=== PATIENT | female | born 1995 | race Caucasian/White ===

== ENCOUNTER → 2018-08-05 12:47 | Outpatient (CLI) | payer BC, SELFPAY ==
[2018-08-05 13:04] LABS: Adenovirus F 40/41, stool Not Detected (NotDetected); Astrovirus Not Detected (NotDetected); Campylobacter Not Detected (NotDetected); Clostridium Difficile A/B, PCR Not Detected (NotDetected); Cryptosporidium Not Detected (NotDetected); Cyclospora Cayetanesis Not Detected (NotDetected); Entamoeba histolytica Not Detected (NotDetected); Enteroaggregative E coli Not Detected (NotDetected); Enteropathogenic E coli Not Detected (NotDetected); Enterotoxigenic E coli Not Detected (NotDetected); Giardia lamblia Not Detected (NotDetected); Norovirus Not Detected (NotDetected); Plesimonas Shigalloides, PCR Not Detected (NotDetected); Rotavirus A Not Detected (NotDetected); Salmonella, PCR Not Detected (NotDetected); Sapovirus Not Detected (NotDetected); Shiga-like toxin E coli Not Detected (NotDetected); Shigella Enterovasive E coli Not Detected (NotDetected); Vibrio Cholerae Not Detected (NotDetected); Vibrio, PCR Not Detected (NotDetected); Yersinia Entercolitica, PCR Not Detected (NotDetected)
[2018-08-05 16:25] LABS: C-Reactive Protein < 0.2 mg/L (0.0-0.9)
[2018-08-07 20:14] LABS: Tissue Transglutaminase IgA Ab <2 U/mL (0-3); Tissue Transglutaminase IgG Ab <2 U/mL (0-5)
[2018-08-10 14:48] LABS: Calprotectin, Fecal <16 ug/g (0-120)
== END ==
PROVIDERS: Visit Provider Emergency Medicine
DX: R19.7 Diarrhea, unspecified (principal)
CPT/HCPCS: 36415; 83516; 83993; 86140; 87205; 87507

== ENCOUNTER → 2018-09-25 14:49 | Outpatient (POV) | payer BC, SELFPAY | PROVIDERS: Visit Provider Nurse Practitioner Acute Care | DX: Z00.00 Encounter for general adult medical examination without abnormal findings (principal) ==

== ENCOUNTER → 2019-06-18 14:27 | Outpatient (CLI) | payer BC, SELFPAY ==
[2019-06-18 18:46] LABS: HCG,Quantitative 0 mIU/mL
== END ==
PROVIDERS: Visit Provider Nurse Practitioner Obstetrics & Gynecology
DX: Z34.90 Encounter for supervision of normal pregnancy, unspecified, unspecified trimester (principal); N92.6 Irregular menstruation, unspecified
CPT/HCPCS: 36415; 84702

== ENCOUNTER → 2019-06-21 14:15 | Outpatient (CLI) | payer BC, SELFPAY ==
--- NOTE | 2019-06-21 14:20 | US_ITS ---
PROCEDURE: US TRANSVAGINAL CLINICAL INDICATION: PELVIC PAIN, OVARIAN CYST Pelvic pain, left lower quadrant pain COMPARISON: No exams were available for comparison FINDINGS: UTERUS: The uterus is 8 x 4 x 5 cm with a combined endometrial thickness of 2 mm. No uterine mass evident. Left ovary is 3.3 x 2.2 cm and contains a few small follicles The right ovary is 3.7 x 2.5 cm with multiple small follicles. At least 8 follicles are seen in 1 image on both ovaries.. The total volume of the right ovary is 10.5 mL the total volume of the left ovary is 10.5 mL. Bilateral ovarian blood flow is present. No cul-de-sac fluid apparent IMPRESSION: Polycystic appearance of the ovaries otherwise negative pelvic ultrasound Dictated by: Jason Carpio MD 06/21/2019 16:52 Electronically signed by Jason Carpio MD in [place] 06/21/2019 16:52
== END ==
PROVIDERS: PCP Family Medicine; Visit Provider Physician Assistant
DX: R10.2 Pelvic and perineal pain (principal); N83.202 Unspecified ovarian cyst, left side
CPT/HCPCS: 76830

== ENCOUNTER 2019-11-25 04:49 | Emergency (ER) | payer BC, SELFPAY ==
[2019-11-25 05:04] VITALS: BP 130/96; PULSE 112; RESP 24; TEMP 36.6; O2SAT 98
--- NOTE | 2019-11-25 05:10 | XR_ITS ---
PROCEDURE: XR SHOULDER LT MIN 2V Patient Age:23Y CLINICAL INDICATION: pain Shoulder pain started while playing video games. No significant trauma COMPARISON: No exams were available for comparison FINDINGS: Left shoulder is intact with no fracture or dislocation. The humeral head and neck satisfactory. Glenohumeral joint intact and satisfactory. AC joint unremarkable. Scapula upper left ribs and left lung apex unremarkable IMPRESSION: Negative left shoulder. No fracture nor dislocation Dictated by: Frank Carrillo MD 11/25/2019 13:16 Electronically signed by Frank Carrillo MD in [place] 11/25/2019 13:16
--- NOTE | 2019-11-25 05:17 | PC.NURSE ---
Ice placed to left shoulder
[2019-11-25 05:21] LABS: Urine Pregnancy, HCG Qual. Negative (Negative)
--- NOTE | 2019-11-25 05:41 | HMH.EDUPEXT ---
ED Disposition Clinical Impression: Shoulder pain, left Qualifiers: Chronicity: acute Qualified Code(s): M25.512 - Pain in left shoulder Acute serous otitis media Qualifiers: Laterality: left Recurrence: not specified as recurrent Qualified Code(s): H65.02 - Acute serous otitis media, left ear Disposition: Home, Self-Care Condition on Discharge: Good Instructions: DI for Shoulder Pain Additional Instructions: use meds and call pcp for follow up Prescriptions: predniSONE [Prednisone 20mg Tab] 20 mg PO BID #10 tab Prescription Printed Referrals: Albin Puckett MD [Primary Care Provider] - - Critical Care Critical Care Time: No Attestation: On 11/25/19, the high probability of a clinically significant, sudden or life threatening deterioration of the following system(s) required my full and direct attention, intervention and personal management. The time I documented below is in addition to time spent performing reported procedures but includes the following listed in this critical care notation. Medical Decision Making - Medical Records Medical records reviewed: Yes: I reviewed the patient's medical records. - Jovanny Inquiry Pt receiving controlled substance: No Vital Signs: 11/25/19 05:04 Temperature 97.8 F Temperature Source Oral Pulse Rate [Right] 112 H Respiratory Rate 24 Blood Pressure [Right Arm] 130/96 H Blood Pressure Mean [Right Arm] 107 Blood Pressure Source [Right Arm] Automatic Cuff Blood Pressure Position [Right Arm] Sitting 02 Sat by Pulse Oximetry 98 Oxygen Delivery Method Room Air - Lab Data Lab results reviewed: Yes: I reviewed the patient's lab results. Lab Results 11/25/19 05:05: Urine HCG, Qual Negative Orders (Tests/Meds): ED MEDICATIONS Discontinued Medications Generic Name Dose Route Start Last Admin Trade Name Freq PRN Reason Stop Dose Admin Ketorolac Tromethamine 60 mg 11/25/19 05:11 11/25/19 05:27 Toradol 60mg/2ml Vial IM 11/25/19 05:12 60 mg ONCE ONE Administration ORDERS Category Date Time Status XR shoulder LT min 2V Stat Exams 11/25/19 05:10 Taken - Radiology Data #1 Image(s): Shoulder Image Reviewed: Yes I reviewed the patient's radiology image Preliminary Findings: No Fracture Seen Upper Extremity HPI - General Chief Complaint: Extremity Injury, Upper Stated Complaint: Earache, Pain in lft shoulder and down back Time Seen by Provider: 11/25/19 05:25 Mode of Arrival: Ambulatory Source of Information: Patient, Medical Record Limitations: No Limitations Description of Symptoms (Recalled from ER Triage Doc. by RN): Pt c/o left shoulder pain started about 30 minutes ago, denies injury - History of Present Illness HPI narrative: atraumatic pain to lt shoulder area with no rash - some lt ear pain but no cough or fever and no sob or abd pain MD complaint: injury to: shoulder Onset (ago): hour(s) Other Extremity Injury: Left: shoulder Place: home Severity: moderate Associated symptoms: denies other symptoms - Related Data Home Medications Medication Instructions Recorded Confirmed Buspirone HCl [Buspar 10mg 10 mg PO BID 02/14/19 11/25/19 tablet] Levonorgestrel/Ethin.estradiol 1 tab PO DAILY 11/25/19 11/25/19 [Orsythia-28 Tablet] Previous Rx's Medication Instructions Recorded Dicyclomine HCl [Bentyl 10mg 10 mg PO QID PRN #20 cap 02/15/19 capsule] predniSONE [Prednisone 20mg 20 mg PO BID #10 tab 11/25/19 Tab] Allergies Allergy/AdvReac Type Severity Reaction Status Date / Time cinnamon [CINNAMON] Allergy Unknown Verified 06/26/19 15:28 [facility] History - Hepatitis A Screen Drug use history?: No High risk sexual behaviors?: No History of sexually transmitted infection?: No Currently employed?: No Childcare worker?: No Do you have indoor plumbing?: Yes Do you have electricity?: Yes Attestation statement:: This patient has been screened for Hepatit
[2019-11-25 06:02] VITALS: BP 136/88; PULSE 116; RESP 18; TEMP 36.6; O2SAT 97
== END 2019-11-25 06:03 | disposition home or self-care (01) ==
PROVIDERS: Emergency Provider Emergency Medicine; PCP Family Medicine
DX: M25.512 Pain in left shoulder (principal); H65.02 Acute serous otitis media, left ear; K21.9 Gastro-esophageal reflux disease without esophagitis
CPT/HCPCS: 73030; 81025; 96372; 99282

== ENCOUNTER 2019-11-26 13:42 | Observation (INO) | payer BC, SELFPAY ==
[2019-11-26] VITALS (8 sets, daily range): BP systolic 103–126; BP diastolic 56–76; PULSE 75–106; RESP 15–22; TEMP 36.7–36.8; O2SAT 95–100; BMI 30.2
--- NOTE | 2019-11-26 11:52 | CT_ITS ---
PROCEDURE: CT ANGIO CHEST CLINCIAL INDICATION: CHEST PAIN ON BREATHING,LT SIDED CHEST PAIN COMPARISON: No exams were available for comparison TECHNIQUE: IV Contrast: 70ML OPTIRAY 350 Axial images obtained with sagittal and coronal reformats. All CT scans at the facility use one or more dose reduction, viz: automated exposure control, ma/kV adjustment per patient size (including targeted exams where dose is matched to indication, i.e. head), or iterative reconstruction technique. FINDINGS: HEART AND MEDIASTINAL STRUCTURES: Filling defects are present within the descending branch of the pulmonary artery on both sides extending into the segmental branches on both sides. This is somewhat more extensive on the right. This is consistent with bilateral acute pulmonary emboli. The main pulmonary artery and the right and left main pulmonary arteries do not appear involved. There is normal heart size. There is some mild bowing of the interventricular septum posteriorly which could be seen with mild RV strain. LUNGS AND PLEURAL SPACES: There is consolidation in the left lower lobe posteriorly with trace left-sided effusion. BONY STRUCTURES: No acute bony abnormalities apparent. UPPER ABDOMEN: Unremarkable. ADDITIONAL FINDINGS: No other significant abnormalities. IMPRESSION: 1. Acute bilateral pulmonary emboli involving the lower lobes with suggestion of some mild right ventricular strain 2. Consolidation in the left lung base posteriorly suggesting pneumonia versus atelectasis or infarct with trace left-sided effusion. 3. Dr. Conrad's office was called with the report 11/26/2019 at 12:50 p.m.. The report was given to Kayy Dictated by: Jason Carpio MD 11/26/2019 12:54 Electronically signed by Jason Carpio MD in [place] 11/26/2019 12:54
--- NOTE | 2019-11-26 14:01 | HMH.HP ---
*Admission Date: 11/26/19 <Inge Ching 11/26/19 14:28> *Chief complaint: left shoulder pain <Inge Ching 11/26/19 14:28> *History of present illness: Kimberly is a 23-year-old female with a history of irritable bowel syndrome who presented to [facility] for ongoing left shoulder pain. She was seen in the emergency room 2 days ago for the same. She received ketorolac 60 mg IM. X-ray of the shoulder was negative. She also had a left earache and was started on prednisone for effusion. The pain did not improve. The pain went from her shoulder down to the left chest/rib cage and she began to have discomfort on inspiration. With evaluation in the office patient had a temperature of 97.8, blood pressure 128/74, and heart rate was 70. She also had a chest CTA which indicated acute bilateral pulmonary emboli involving the lower lobes with suggestion of some mild right ventricular strain; consolidation in the left lung base posteriorly suggesting pneumonia versus atelectasis or infarct with trace left-sided effusion. She was thus admitted for anticoagulation and pain control. She will also be treated for otitis externa of bilateral ears. To note patient has recently restarted oral control pills 3 months ago for irregular menses and polycystic ovaries. <Inge Ching 11/26/19 14:28> [facility] History Medical History: Reports:: Gastroesophageal Reflux Disease(GERD) Denies:: Cancer, Diabetes Mellitus Type 1, Diabetes Mellitus Type 2, Internal Pacemaker, Lung Disease, MRSA, Seizures <Inge Ching 11/26/19 14:28> *Have you ever received a pneumonia vaccine?: No <Inge Ching 11/26/19 14:28> *Have you received a flu vaccine this season?: No <Inge Ching 11/26/19 14:28> Comment:: Irritable bowel syndrome <Inge Ching 11/26/19 14:28> Other Surgeries: Yes: No Previous Surgery. No: Pacemaker <Inge Ching 11/26/19 14:28> Amputation: No <Inge Ching 11/26/19 14:28> Fractures: No <Inge Ching 11/26/19 14:28> - *Social History Smoking Status: Never smoker <HumzaInge 11/26/19 14:28> Alcohol Intake: current <ChingInge 11/26/19 14:28> Alcohol Intake Frequency:: a few times a month <ChingInge - 11/26/19 14:28> *Occupational Status:: employed <ChingInge Kam 11/26/19 14:28> Housing: house <ChingInge 11/26/19 14:28> Household Members: spouse, children <ChingInge 11/26/19 14:28> *Travel in the last 8 weeks: None <ChingInge 11/26/19 14:28> Family Hx:: Cancer, Coronary Artery Disease, Stroke <Ching,Inge 11/26/19 14:28> 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 history: Polycystic Ovary Syndrome <ChingInge 11/26/19 14:28> : 1 <HumzaInge 11/26/19 14:28> Para: 1 <ChingInge 11/26/19 14:28> A: 0 <ChingInge 11/26/19 14:28> Comment: Restarted oral control pills about 3 months ago <HumzaInge 11/26/19 14:28> Review of Systems - Constitutional Denies chills, Denies fever(s) <HumzaInge 11/26/19 14:28> - Eyes Denies change in vision <Inge Ching 11/26/19 14:28> - ENT Reports ear pain (Left ear), Denies dizziness, Denies nosebleed, Denies post nasal drip, Denies sore throat <Inge Ching 11/26/19 14:28> - *Cardiovascular Reports chest pain, Reports fast heart rate, Denies shortness of breath, Denies irregular heart rhythm, Denies foot swelling <Inge Ching 11/26/19 14:28> - *Respiratory Denies chest congestion, Denies cough, Denies shortness of breath, Denies excessive phlegm production, Denies pain with cough <Inge Ching 11/26/19 14:28> Comments: Pain on deep inspiration <Inge Ching 11/26/19 14:28> - *Gastrointestinal Denies abdominal pain, Denies heartburn, Denies vomiting blood, Denies loose stools, Denies nausea, Denies vomiting <Inge Ching 11/26/19 14:28> - *Genitourinary Denies difficulty urinating <Inge Ching 11/26/19 14:28> - *Musculoskeletal Denies abnormal walking, Denies joint
--- NOTE | 2019-11-26 14:03 | HMH.PHAINT ---
MEDICATION RECONCILIATION COMPLETE. OBTAINED MEDICATION LIST FROM MD AND CROSS REFERENCED WITH FILL HISTORY.
[2019-11-26 14:59] LABS: Basophils % 0.3 % (0.1-2.0); Eosinophils # 0.1 K/mm3 (0.0-0.4); Eosinophils % 1.5 % (0.1-12.0); Hematocrit 40.5 % (37.0-47.0); Hemoglobin 13.7 g/dL (12.2-16.2); Lymphocytes # 2.3 K/mm3 (0.7-4.5); Lymphocytes % 25.2 % (10-50); Mean Corpuscular HGB Conc 33.7 g/dL (31.8-35.4); Mean Corpuscular Hemoglobin 31.2 pg (27.0-31.2); Mean Corpuscular Volume 92.6 fl (81-99); Mean Platelet Volume 7.9 fl (7.4-10.4); Monocytes # 0.6 K/mm3 (0.1-1.0); Monocytes % 6.4 % (1.7-9.3); Neutrophils # 6.2 K/mm3 (1.8-7.8); Neutrophils % 66.5 % (37.0-80.0); Platelet Count 252 K/mm3 (142-424); Red Blood Count 4.38 M/mm3 (4.20-5.40); White Blood Count 9.3 K/mm3 (4.8-10.8)
[2019-11-26 15:03] LABS: Chloride 104 mmol/L (98-107); Potassium 3.6 mmoL/L (3.5-5.1); Sodium 136 mmol/L (136-145)
[2019-11-26 15:06] LABS: Alanine Aminotransferase 49 U/L (12-78); Albumin Level 4.1 g/dl (3.5-5.0); Albumin/Globulin Ratio 1.3 (1.1-1.8); Alkaline Phosphatase 54 U/L (38-126); Anion Gap 13.6 mEq/L (5-15); Aspartate Amino Transferase 35 U/L (14-36); Bilirubin,Total 0.4 mg/dl (0.2-1.3); Blood Urea Nitrogen 7 mg/dl (7-17); Calcium 8.8 mg/dl (8.4-10.2); Carbon Dioxide 22 mmol/L (22.0-30.0); Creatinine Clearance Estimated 155 mL/min (50-200); Estimated Glomerular Filt Rate 102 ml/min (>60); GFR (African American) 123 ML/MIN (>60); Globulin 3.1 g/dL (1.3-3.2); Glucose 92 mg/dl (74-100); Total Protein,Serum 7.2 g/dl (6.3-8.2)
[2019-11-26 15:21] LABS: INR 0.94 (0.9-1.1); Prothrombin Time 9.8 seconds (9.4-11.8)
--- NOTE | 2019-11-26 18:12 | PC.NURSE ---
DR. GAVIRIA AT BEDSIDE FOR ROUNDS. NO NEW ORDERS AT THIS TIME.
[2019-11-27] VITALS: BP 109/58; PULSE 89; PULSE 90; O2SAT 98
--- NOTE | 2019-11-27 00:36 | PC.NURSE ---
She is resting in bed. Received PRN pain medication for pain in her left ribs. She reports that it is hard to take a deep breath. She continues with lovenox injections. Urine is yellow, clear. Continues on RA. VSS.
[2019-11-27 02:00] VITALS: BP 107/64; PULSE 76; O2SAT 98
[2019-11-27 04:00] VITALS: BP 116/58; PULSE 80; PULSE 86; O2SAT 99
[2019-11-27 06:00] VITALS: BP 107/62; PULSE 88; O2SAT 98
--- NOTE | 2019-11-27 07:30 | HMH.PHAVTE ---
[facility] Pharmacy VTE Monitoring - Patient Demographics Admission date: 11/26/19 Report Date: 11/27/19 Time: 07:30 Allergies/Adverse Reactions: Patient Allergies cinnamon [CINNAMON] Allergy (Unknown, Verified 06/26/19 15:28) Height: 1.63 m Weight: 79.917 kg Patient Problems: Current Active Problems Pulmonary embolism, bilateral (Acute) Otitis externa (Acute) Shoulder pain, acute (Acute) - VTE Risk Labs: VTE Related Lab Results Hgb 13.7 g/dL (12.2-16.2) 11/26/19 14:35 Hct 40.5 % (37.0-47.0) 11/26/19 14:35 Plt Count 252 K/mm3 (142-424) 11/26/19 14:35 PT 9.8 seconds (9.4-11.8) 11/26/19 14:35 INR 0.94 (0.9-1.1) 11/26/19 14:35 BUN 7 mg/dl (7-17) 11/26/19 14:35 Creatinine 0.70 mg/dl (0.52-1.04) 11/26/19 14:35 Estimated Creat Clear 155 mL/min (50-200) 11/26/19 14:35 Was VTE Risk Assessment Performed: Yes VTE Score: 1 VTE Risk Level: Very Low Risk - Prophylaxis VTE Prophylaxis Ordered?: Yes Types of VTE Prophylaxis: TEDS Knee High, Pharmacological Location of Applied Device: Bilateral Lower Extremeties Pharmacologic Type: Enoxaparin - VTE Diagnosis Confirmed Treatment or plan recommended: Continue Current Treatment
[2019-11-27 08:00] VITALS: BP 116/71; PULSE 88; RESP 18; TEMP 36.8; O2SAT 97
--- NOTE | 2019-11-27 08:11 | HMH.ACPN2 ---
<Inge Ching - Last Filed: 11/27/19 08:11> Internal Medicine - PN: Subj *Date: 11/27/19 *Time: 08:11 Interval history: Patient states she is better this morning. She continues to have the left pleuritic type pain and is short of breath with activity. O2 sats have been good. Pain medicine does help. She denies any nausea or vomiting. She has been able to eat without difficulty. Bowels have not moved. She is voiding QS. She has been up to the bathroom several times. She does experience some dizziness. Exam Vital signs and Labs for Last 24 Hours: Temp Pulse Resp BP Pulse Ox 98.2 F 88 15 107/62 L 98 11/26/19 19:44 11/27/19 06:00 11/26/19 19:44 11/27/19 06:00 11/27/19 06:00 Laboratory Results - last 24 hr 11/26/19 14:35: WBC 9.3, RBC 4.38, Hgb 13.7, Hct 40.5, MCV 92.6, MCH 31.2, MCHC 33.7, RDW 12.0, Plt Count 252, MPV 7.9, Neut % (Auto) 66.5, Lymph % (Auto) 25.2, [place] % (Auto) 6.4, Eos % (Auto) 1.5, Baso % (Auto) 0.3, Neut # (Auto) 6.2, Lymph # (Auto) 2.3, [place] # (Auto) 0.6, Eos # (Auto) 0.1, Baso # (Auto) 0.0 11/26/19 14:35: PT 9.8, INR 0.94 11/26/19 14:35: Sodium 136, Potassium 3.6, Chloride 104, Carbon Dioxide 22, Anion Gap 13.6, BUN 7, Creatinine 0.70, Estimated Creat Clear 155, Estimated GFR 102, Est GFR ( Amer) 123, Glucose 92, Calcium 8.8, Total Bilirubin 0.4, AST 35, ALT 49, Alkaline Phosphatase 54, Total Protein 7.2, Albumin 4.1, Globulin 3.1, Albumin/Globulin Ratio 1.3 I & O for Last 24 hours: Intake & Output 11/24/19 11/25/19 11/26/19 11/27/19 11:59 11:59 11:59 11:59 Intake Total 1089 / 1089 Output Total 300 / 300 Balance 789 / 789 Weight 176 lb 3 oz - Constitutional no acute distress Comments: Appears more comfortable this a.m. - *Routine Respiratory Exam Present: CTA bilaterally (Anteriorly and posteriorly) - *Routine Cardiovascular Exam Present: RRR - *Routine Abdominal Exam Present: soft, normoactive bowel sounds. Absent: tenderness - *Routine Extremities Exam Absent: edema, calf tenderness, palpable cord Comments: Small knot on anterior left lower extremity. Tender to palpation. No leg edema. No calf tenderness or knots otherwise; no cords. - *Routine Neurological Exam Present: alert, oriented X3 Assessment and Plan (1) Pulmonary embolism, bilateral Current visit: Yes Status: Acute Category: Medical Code(s): I26.99 - Other pulmonary embolism without acute cor pulmonale (2) Shoulder pain, acute Current visit: Yes Status: Acute Category: Medical Code(s): M25.519 - Pain in unspecified shoulder (3) Otitis externa Current visit: Yes Status: Acute Category: Medical Code(s): H60.90 - Unspecified otitis externa, unspecified ear <Isaias Conrad - Last Filed: 11/27/19 08:47> Internal Medicine - PN: Subj *Date: 11/27/19 *Time: 08:45 Exam Vital signs and Labs for Last 24 Hours: Temp Pulse Resp BP Pulse Ox 98.2 F 88 15 107/62 L 98 11/27/19 08:00 11/27/19 06:00 11/26/19 19:44 11/27/19 06:00 11/27/19 06:00 Laboratory Results - last 24 hr 11/26/19 14:35: WBC 9.3, RBC 4.38, Hgb 13.7, Hct 40.5, MCV 92.6, MCH 31.2, MCHC 33.7, RDW 12.0, Plt Count 252, MPV 7.9, Neut % (Auto) 66.5, Lymph % (Auto) 25.2, [place] % (Auto) 6.4, Eos % (Auto) 1.5, Baso % (Auto) 0.3, Neut # (Auto) 6.2, Lymph # (Auto) 2.3, [place] # (Auto) 0.6, Eos # (Auto) 0.1, Baso # (Auto) 0.0 11/26/19 14:35: PT 9.8, INR 0.94 11/26/19 14:35: Sodium 136, Potassium 3.6, Chloride 104, Carbon Dioxide 22, Anion Gap 13.6, BUN 7, Creatinine 0.70, Estimated Creat Clear 155, Estimated GFR 102, Est GFR ( Amer) 123, Glucose 92, Calcium 8.8, Total Bilirubin 0.4, AST 35, ALT 49, Alkaline Phosphatase 54, Total Protein 7.2, Albumin 4.1, Globulin 3.1, Albumin/Globulin Ratio 1.3 I & O for Last 24 hours: Intake & Output 11/24/19 11/25/19 11/26/19 11/27/19 23:59 23:59 23:59 23:59 Intake Total 360 / 370 729 / 729 Output Total 300 / 300 [place]
--- NOTE | 2019-11-27 09:47 | HMH.PHAINT ---
DISCHARGE COUNSELING COMPLETE. SPOKE WITH PATIENT ABOUT STOPPING CONTROL, ADDITION OF SHORT-COURSE NORCO, AND XARELTO. DISCUSSED SIGNS AND SYMPTOMS OF BLEEDING, WHAT TO DO IF BLEEDING/HEAD BUMP OCCURS. PATIENT ENDORSED NO QUESTIONS AT THIS TIME.
--- NOTE | 2019-11-27 16:47 | HMH.DCSUM ---
General - General Admission date:: 11/26/19 Discharge date: 11/27/19 HPI HPI: Kimberly is a 23-year-old female with a history of irritable bowel syndrome who presented to [facility] for ongoing left shoulder pain. She was seen in the emergency room 2 days ago for the same. She received ketorolac 60 mg IM. X-ray of the shoulder was negative. She also had a left earache and was started on prednisone for effusion. The pain did not improve. The pain went from her shoulder down to the left chest/rib cage and she began to have discomfort on inspiration. With evaluation in the office patient had a temperature of 97.8, blood pressure 128/74, and heart rate was 70. She also had a chest CTA which indicated acute bilateral pulmonary emboli involving the lower lobes with suggestion of some mild right ventricular strain; consolidation in the left lung base posteriorly suggesting pneumonia versus atelectasis or infarct with trace left-sided effusion. She was thus admitted for anticoagulation and pain control. She was also be treated for otitis externa of bilateral ears. To note patient recently had restarted oral control pills about 3 months ago for irregular menses and polycystic ovaries. Hospital Course Hospital Course: Patient was admitted to acute care for anticoagulation and pain control. She received maintenance IV fluids. She did require [place] for ongoing left lower chest pain. She received Lovenox injections every 12 hours and on day of discharge was started on Xarelto. CBC was normal. Blood chemistries were normal as well as liver function studies. Antithrombin III, factor V, factor V Leiden mutation,Anticardiolio Ab,IgA/G/M, protein C and protein S were ordered and pending at time of discharge. On 11/27/2019 patient was feeling better. She continued to have the left lower chest pain which improved with pain medicine. She was wanting to go home. Vital signs were stable and O2 sats were good on room air. Patient was discharged to home in stable and satisfactory condition. She was to follow-up with Dr. Conrad in 1 week. She was to start on Xarelto. 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 She will be off of work for 2 weeks. Objective Vital signs: Temp Pulse Resp BP Pulse Ox 98.2 F 88 18 116/71 97 11/27/19 08:00 11/27/19 08:00 11/27/19 08:00 11/27/19 08:00 11/27/19 08:00 Narrative: Exam Vital signs and Labs for Last 24 Hours: Temp Pulse Resp BP Pulse Ox 98.2 F 88 15 107/62 L 98 11/26/19 19:44 11/27/19 06:00 11/26/19 19:44 11/27/19 06:00 11/27/19 06:00 Laboratory Results - last 24 hr 11/26/19 14:35: WBC 9.3, RBC 4.38, Hgb 13.7, Hct 40.5, MCV 92.6, MCH 31.2, MCHC 33.7, RDW 12.0, Plt Count 252, MPV 7.9, Neut % (Auto) 66.5, Lymph % (Auto) 25.2, [place] % (Auto) 6.4, Eos % (Auto) 1.5, Baso % (Auto) 0.3, Neut # (Auto) 6.2, Lymph # (Auto) 2.3, [place] # (Auto) 0.6, Eos # (Auto) 0.1, Baso # (Auto) 0.0 11/26/19 14:35: PT 9.8, INR 0.94 11/26/19 14:35: Sodium 136, Potassium 3.6, Chloride 104, Carbon Dioxide 22, Anion Gap 13.6, BUN 7, Creatinine 0.70, Estimated Creat Clear 155, Estimated GFR 102, Est GFR ( Amer) 123, Glucose 92, Calcium 8.8, Total Bilirubin 0.4, AST 35, ALT 49, Alkaline Phosphatase 54, Total Protein 7.2, Albumin 4.1, Globulin 3.1, Albumin/Globulin Ratio 1.3 I & O for Last 24 hours: Intake & Output 11/24/19 11/25/19 11/26/19 11/27/19 11:59 11:59 11:59 11:59 Intake Total 1089 / 1089 Output Total 300 / 300 Balance 789 / 789 Weight 176 lb 3 oz - Constitutional no acute distress Comments: Appears more comfortable this a.m. - *Routine Respiratory Exam Present: CTA bilaterally (Anteriorly and posteriorly) - *Routine Cardiovascular Exam Present: RRR - *Routine Abdominal Exam Present: soft, normoactive bowel sounds. Absent: tendernes
[2019-11-29 10:27] LABS: Anti-Cardio Antibody IgM <9 MPL U/mL (0-12); Anti-Cardiolipin Antibody IgG <9 GPL U/mL (0-14); Anticardiolipin Ab,IgA,Qn <9 APL U/mL (0-11)
[2019-11-29 16:45] LABS: Anti-Thrombin III Antigen 89 % (72-124); Antithrombin Activity 107 % (75-135); Factor V Activity 112 % (70-150); Protein C Functional 150 % (73-180); Protein S Functional 100 % (63-140)
== END 2019-11-27 10:00 | disposition home or self-care (01) ==
LOC: 2ND 13:45
PROVIDERS: Admitting Provider Family Medicine; PCP Family Medicine; Visit Provider Family Medicine
DX: I26.99 Other pulmonary embolism without acute cor pulmonale (principal); K58.9 Irritable bowel syndrome, unspecified; H66.92 Otitis media, unspecified, left ear; M25.512 Pain in left shoulder
CPT/HCPCS: 71275; 80053; 81241; 85025; 85220; 85300; 85301; 85302; 85306; 85610; 86147; G0378; Q9967

== ENCOUNTER → 2020-01-15 17:14 | Outpatient (CLI) | payer BC, SELFPAY ==
[2020-01-15 17:17] LABS: Adenovirus F 40/41, stool Not Detected (NotDetected); Astrovirus Not Detected (NotDetected); Campylobacter Not Detected (NotDetected); Clostridium Difficile A/B, PCR Not Detected (NotDetected); Cryptosporidium Not Detected (NotDetected); Cyclospora Cayetanesis Not Detected (NotDetected); Entamoeba histolytica Not Detected (NotDetected); Enteroaggregative E coli Not Detected (NotDetected); Enteropathogenic E coli Not Detected (NotDetected); Enterotoxigenic E coli Not Detected (NotDetected); Giardia lamblia Not Detected (NotDetected); Norovirus Not Detected (NotDetected); Plesimonas Shigalloides, PCR Not Detected (NotDetected); Rotavirus A Not Detected (NotDetected); Salmonella, PCR Not Detected (NotDetected); Sapovirus Not Detected (NotDetected); Shiga-like toxin E coli Not Detected (NotDetected); Shigella Enterovasive E coli Not Detected (NotDetected); Vibrio Cholerae Not Detected (NotDetected); Vibrio, PCR Not Detected (NotDetected); Yersinia Entercolitica, PCR Not Detected (NotDetected)
== END ==
PROVIDERS: Visit Provider Nurse Practitioner Family
DX: R19.7 Diarrhea, unspecified (principal)
CPT/HCPCS: 87507

== ENCOUNTER 2020-07-18 20:13 | Emergency (ER) | payer BC, SELFPAY ==
[2020-07-18 20:20] VITALS: BP 128/88; PULSE 102; RESP 20; TEMP 36.6; O2SAT 99; BMI 26.6
[2020-07-18 20:21] VITALS: BP 128/88; PULSE 96; RESP 16; TEMP 36.6; O2SAT 99; BMI 26.6
--- NOTE | 2020-07-18 20:32 | HMH.EDUTC ---
[facility] Disposition Clinical Impression: Torticollis Disposition: Home, Self-Care Condition on Discharge: Good Instructions: DI for Torticollis, Torticollis Additional Instructions: Rest your neck. Try not to be driving or turning your head a lot for the next few days. Heat might help this feel better. If you have a heating pad use it as directed. Don't burn yourself with it. Take the muscle relaxer (flexeril) and the prescribed Ibuprofen as directed. Follow up with your primary care doctor. GO TO THE ER FOR ANY WORSENING SYMPTOMS, ESPECIALLY ANY CHEST PAIN, SHORTNESS OF BREATH, ETC Prescriptions: Ibuprofen [Ibuprofen 600mg Tablet] 600 mg PO Q6HP PRN #30 tab PRN Reason: Mild Pain Transmission Status: Pending to [facility] Cyclobenzaprine HCl [Flexeril 10mg tablet] 10 mg PO BIDP PRN #30 tab PRN Reason: Muscle Spasm Transmission Status: Pending to [facility] Referrals: Isaias Conrad MD [Primary Care Provider] - Forms: Work/School Release Time of Disposition: 20:40 Medical Decision Making - Medical Records Medical records reviewed: No: I reviewed the patient's medical records. - Jovanny Inquiry Pt receiving controlled substance: No Vital Signs: 07/18/20 20:21 Temperature 97.8 F Temperature Source Oral Pulse Rate [Left Brachial] 96 H Respiratory Rate 16 Blood Pressure [Left Arm] 128/88 Blood Pressure Mean [Left Arm] 101 Blood Pressure Source [Left Arm] Automatic Cuff Blood Pressure Position [Left Arm] Sitting 02 Sat by Pulse Oximetry 99 Oxygen Delivery Method Room Air [facility] HPI - General Stated complaint: Muscle spams in l side of neck, shoulder Time Seen by Provider: 07/18/20 20:32 Mode of Arrival: Ambulatory Source of Information: Patient Description of Symptoms (Recalled from Triage Doc. by RN): complain of lrft neck and shoulder muscle spasms since - History of Present Illness Provider Complaint: She states that over the past 3 days she has had worsening pain of the left side of her neck. It radiates around to her upper back. She denies any recent injuries or car wrecks or falls. She denies any numbness or tingling. She states it feels like a muscle is spasming in her neck. - Related Data Home Medications Medication Instructions Recorded Confirmed Sertraline HCl [Zoloft 50mg tablet] 50 mg PO DAILY 07/18/20 07/18/20 Previous Rx's Medication Instructions Recorded Cyclobenzaprine HCl [Flexeril 10mg 10 mg PO BIDP PRN #30 tab 07/18/20 tablet] Ibuprofen [Ibuprofen 600mg 600 mg PO Q6HP PRN #30 tab 07/18/20 Tablet] Allergies Allergy/AdvReac Type Severity Reaction Status Date / Time cinnamon [CINNAMON] Allergy Unknown Verified 06/26/19 15:28 [facility] History - Hepatitis A Screen Attestation statement:: This patient has been screened for Hepatitis A risk factors. I have reviewed the patient's past medical history: Yes Medical History: Reports:: Gastroesophageal Reflux Disease(GERD) Denies:: Cancer, Diabetes Mellitus Type 1, Diabetes Mellitus Type 2, Internal Pacemaker, Lung Disease, MRSA, Seizures Comment: Irritable bowel syndrome Other Surgeries: Yes: No Previous Surgery. No: Pacemaker Amputation: No Fractures: No - Social History Smoking Status: Never smoker Alcohol Intake: never Alcohol Intake Frequency:: a few times a month Occupational Status: employed Housing: house Household Members: spouse, children Family Hx:: Cancer, Coronary Artery Disease, Stroke [employer] history: Polycystic Ovary Syndrome Comment: Restarted oral control pills about 3 months ago ROS Obtained: Yes All systems reviewed & no additional complaints - Constitutional Constitutional: Denies body ache, Denies chills, Denies fever(s), Denies poor appetite, Denies malaise - Eyes Eyes: Denies blurry vision, Denies change in vision, Denies eye discharge - ENT Ears, Nose, Mouth, and Throat: Denies dizziness, Denies otalgia, Denies
[2020-07-18 20:55] VITALS: BP 128/88; PULSE 96; RESP 16; TEMP 36.6; O2SAT 99
== END 2020-07-18 20:56 | disposition home or self-care (01) ==
PROVIDERS: Emergency Provider Nurse Practitioner Family; PCP Family Medicine
DX: M43.6 Torticollis (principal); K21.9 Gastro-esophageal reflux disease without esophagitis
CPT/HCPCS: 96372; 99201

== ENCOUNTER → 2021-03-02 11:02 | Outpatient (POV) | payer BC, SELFPAY | PROVIDERS: Visit Provider Nurse Practitioner Family | DX: Z00.00 Encounter for general adult medical examination without abnormal findings (principal) ==

== ENCOUNTER → 2021-03-14 10:37 | Outpatient (CLI) | payer BC, SELFPAY ==
[2021-03-14 11:50] LABS: Basophils # 0.1 K/mm3 (0-0.2); Basophils % 0.6 % (0.1-2.0); Eosinophils # 0.1 K/mm3 (0.0-0.4); Eosinophils % 1.6 % (0.1-12.0); Hemoglobin 15.2 g/dL (12.2-16.2); Lymphocytes # 2.3 K/mm3 (0.7-4.5); Lymphocytes % 26.9 % (10-50); Mean Corpuscular HGB Conc 34.4 g/dL (31.8-35.4); Mean Corpuscular Hemoglobin 30.9 pg (27.0-31.2); Mean Corpuscular Volume 89.9 fl (81-99); Mean Platelet Volume 7.7 fl (7.4-10.4); Monocytes # 0.6 K/mm3 (0.1-1.0); Monocytes % 7.2 % (1.7-9.3); Neutrophils # 5.5 K/mm3 (1.8-7.8); Neutrophils % 63.6 % (37.0-80.0); Platelet Count 294 K/mm3 (142-424); Red Cell Distribution Width 12.8 % (11.5-17.5); White Blood Count 8.6 K/mm3 (4.8-10.8)
== END ==
PROVIDERS: Physician Assistant; PCP Family Medicine; Visit Provider Physician Assistant
DX: Z20.822 Contact with and (suspected) exposure to COVID-19 (principal)
CPT/HCPCS: 36415; 85025; U0003

== ENCOUNTER → 2021-04-16 05:13 | Outpatient (CLI) | payer BC, SELFPAY ==
[2021-04-16 06:36] LABS: Basophils # 0.1 K/mm3 (0-0.2); Basophils % 0.8 % (0.1-2.0); Eosinophils # 0.2 K/mm3 (0.0-0.4); Hematocrit 44.2 % (37.0-47.0); Hemoglobin 14.9 g/dL (12.2-16.2); Lymphocytes # 3.1 K/mm3 (0.7-4.5); Lymphocytes % 31.2 % (10-50); Mean Corpuscular HGB Conc 33.8 g/dL (31.8-35.4); Mean Corpuscular Hemoglobin 31.6 pg (27.0-31.2); Mean Corpuscular Volume 93.3 fl (81-99); Mean Platelet Volume 7.8 fl (7.4-10.4); Monocytes # 0.6 K/mm3 (0.1-1.0); Monocytes % 6.4 % (1.7-9.3); Neutrophils # 5.9 K/mm3 (1.8-7.8); Neutrophils % 59.7 % (37.0-80.0); Platelet Count 342 K/mm3 (142-424); Red Blood Count 4.73 M/mm3 (4.20-5.40); White Blood Count 9.8 K/mm3 (4.8-10.8)
[2021-04-16 06:37] LABS: Alanine Aminotransferase 25 U/L (12-78); Albumin Level 4.2 g/dl (3.5-5.0); Albumin/Globulin Ratio 1.5 (1.1-1.8); Alkaline Phosphatase 42 U/L (38-126); Anion Gap 14.7 mEq/L (5-15); Aspartate Amino Transferase 26 U/L (14-36); Bilirubin,Total 0.3 mg/dl (0.2-1.3); Blood Urea Nitrogen 13 mg/dl (7-17); Carbon Dioxide 23 mmol/L (22.0-30.0); Chloride 103 mmol/L (98-107); Estimated Glomerular Filt Rate 100 ml/min (>60); GFR (African American) 121 ML/MIN (>60); Globulin 2.8 g/dL (1.3-3.2); Glucose 106 mg/dl (74-100); Potassium 3.7 mmoL/L (3.5-5.1); Sodium 137 mmol/L (136-145)
== END ==
PROVIDERS: PCP Physician Assistant; Visit Provider Physician Assistant
DX: Z20.822 Contact with and (suspected) exposure to COVID-19 (principal)
CPT/HCPCS: 80053; 85025; U0003

== ENCOUNTER → 2021-06-11 18:06 | Outpatient (CLI) | payer BC, SELFPAY ==
[2021-06-11 18:46] LABS: Adenovirus,PCR Not Detected (NotDetected); Bordetella Pertussis Not Detected (NotDetected); Chlamydophila Pneumoniae, PCR Not Detected (NotDetected); Coronavirus 19, PCR Not Detected (NotDetected); Coronavirus 229E Not Detected (NotDetected); Coronavirus NL63 Not Detected (NotDetected); Coronavirus OC43 Not Detected (NotDetected); Coronovirus HKU1,PCR Not Detected (NotDetected); Human Metapneumovirus Not Detected (NotDetected); Influenza A, PCR Not Detected (NotDetected); Influenza AH1, 2009 Not Detected (NotDetected); Influenza AH1, PCR Not Detected (NotDetected); Influenza AH3,PCR Not Detected (NotDetected); Influenza B, PCR Not Detected (NotDetected); Mycoplasma Pneumoniae, PCR Not Detected (NotDetected); Parainfluenza 1, PCR Not Detected (NotDetected); Parainfluenza 2, PCR Not Detected (NotDetected); Parainfluenza 3, PCR Not Detected (NotDetected); Parainfluenza 4, PCR Not Detected (NotDetected); Respiratory Syncytial Virus Not Detected (NotDetected); Rhinovirus/Enterovirus Not Detected (NotDetected)
[2021-06-11 18:55] LABS: Basophils % 0.4 % (0.1-2.0); Eosinophils # 0.1 K/mm3 (0.0-0.4); Eosinophils % 1.3 % (0.1-12.0); Hematocrit 46.5 % (37.0-47.0); Hemoglobin 15.4 g/dL (12.2-16.2); Lymphocytes # 1.9 K/mm3 (0.7-4.5); Lymphocytes % 20.4 % (10-50); Mean Corpuscular HGB Conc 33.2 g/dL (31.8-35.4); Mean Corpuscular Hemoglobin 31.9 pg (27.0-31.2); Mean Corpuscular Volume 96.2 fl (81-99); Mean Platelet Volume 7.8 fl (7.4-10.4); Monocytes # 0.6 K/mm3 (0.1-1.0); Monocytes % 5.9 % (1.7-9.3); Neutrophils # 6.7 K/mm3 (1.8-7.8); Platelet Count 338 K/mm3 (142-424); Red Blood Count 4.84 M/mm3 (4.20-5.40); Red Cell Distribution Width 12.8 % (11.5-17.5); White Blood Count 9.3 K/mm3 (4.8-10.8)
[2021-06-11 19:46] LABS: Strep Scrn Group A (Rapid) Negative (Negative)
== END ==
LOC: COVID.OUT 18:08
PROVIDERS: PCP Physician Assistant; Visit Provider Physician Assistant
DX: Z20.822 Contact with and (suspected) exposure to COVID-19 (principal)
CPT/HCPCS: 36415; 85025; 87430; 87581; 87632; 87798; C9803; U0003; U0005

== ENCOUNTER → 2021-06-24 19:49 | Outpatient (CLI) | payer BC, SELFPAY ==
[2021-06-24 20:24] LABS: Adenovirus,PCR Not Detected (NotDetected); Bordetella Pertussis Not Detected (NotDetected); Chlamydophila Pneumoniae, PCR Not Detected (NotDetected); Coronavirus 19, PCR Not Detected (NotDetected); Coronavirus 229E Not Detected (NotDetected); Coronavirus NL63 Not Detected (NotDetected); Coronavirus OC43 Not Detected (NotDetected); Coronovirus HKU1,PCR Not Detected (NotDetected); Human Metapneumovirus Not Detected (NotDetected); Influenza A, PCR Not Detected (NotDetected); Influenza AH1, 2009 Not Detected (NotDetected); Influenza AH1, PCR Not Detected (NotDetected); Influenza AH3,PCR Not Detected (NotDetected); Influenza B, PCR Not Detected (NotDetected); Mycoplasma Pneumoniae, PCR Not Detected (NotDetected); Parainfluenza 1, PCR Not Detected (NotDetected); Parainfluenza 2, PCR Not Detected (NotDetected); Parainfluenza 3, PCR Not Detected (NotDetected); Parainfluenza 4, PCR Not Detected (NotDetected); Respiratory Syncytial Virus Not Detected (NotDetected); Rhinovirus/Enterovirus Not Detected (NotDetected)
[2021-06-24 20:38] LABS: Basophils # 0.1 K/mm3 (0-0.2); Basophils % 1.2 % (0.1-2.0); Eosinophils # 0.2 K/mm3 (0.0-0.4); Eosinophils % 2.5 % (0.1-12.0); Hematocrit 43.9 % (37.0-47.0); Hemoglobin 14.8 g/dL (12.2-16.2); Lymphocytes # 2.6 K/mm3 (0.7-4.5); Lymphocytes % 38.5 % (10-50); Mean Corpuscular HGB Conc 33.8 g/dL (31.8-35.4); Mean Corpuscular Hemoglobin 31.6 pg (27.0-31.2); Mean Corpuscular Volume 93.6 fl (81-99); Mean Platelet Volume 7.6 fl (7.4-10.4); Monocytes # 0.5 K/mm3 (0.1-1.0); Monocytes % 7.8 % (1.7-9.3); Neutrophils # 3.4 K/mm3 (1.8-7.8); Neutrophils % 50.1 % (37.0-80.0); Platelet Count 367 K/mm3 (142-424); Red Blood Count 4.69 M/mm3 (4.20-5.40); Red Cell Distribution Width 12.8 % (11.5-17.5); White Blood Count 6.7 K/mm3 (4.8-10.8)
== END ==
PROVIDERS: PCP Family Medicine; Visit Provider Family Medicine
DX: Z20.822 Contact with and (suspected) exposure to COVID-19 (principal)
CPT/HCPCS: 36415; 85025; 87581; 87632; 87798; C9803; U0003; U0005

== ENCOUNTER → 2022-03-24 18:06 | Outpatient (CLI) | payer BC, SELFPAY ==
[2022-03-24 18:40] LABS: Coronavirus 19, PCR Not Detected (NotDetected); Influenza A, PCR Not Detected (NotDetected); Influenza B, PCR Not Detected (NotDetected)
[2022-03-24 18:41] LABS: Basophils # 0.1 K/mm3 (0-0.2); Basophils % 1.6 % (0.1-2.0); Eosinophils # 0.2 K/mm3 (0.0-0.4); Eosinophils % 2.6 % (0.1-12.0); Hematocrit 47.6 % (37.0-47.0); Hemoglobin 15.3 g/dL (12.2-16.2); Lymphocytes # 2.2 K/mm3 (0.7-4.5); Lymphocytes % 28.3 % (10-50); Mean Corpuscular HGB Conc 32.2 g/dL (31.8-35.4); Mean Corpuscular Hemoglobin 31.9 pg (27.0-31.2); Mean Corpuscular Volume 99.1 fl (81-99); Mean Platelet Volume 8.2 fl (7.4-10.4); Monocytes # 0.6 K/mm3 (0.1-1.0); Monocytes % 7.1 % (1.7-9.3); Neutrophils # 4.7 K/mm3 (1.8-7.8); Neutrophils % 60.2 % (37.0-80.0); Platelet Count 369 K/mm3 (142-424); White Blood Count 7.8 K/mm3 (4.8-10.8)
[2022-03-24 18:52] LABS: Strep Scrn Group A (Rapid) Negative (Negative)
== END ==
PROVIDERS: PCP Family Medicine; Visit Provider Nurse Practitioner Family
DX: Z20.822 Contact with and (suspected) exposure to COVID-19 (principal)
CPT/HCPCS: 36415; 85025; 87430; C9803; U0003; U0005

== ENCOUNTER → 2022-04-13 16:23 | Outpatient (CLI) | payer BC, SELFPAY ==
[2022-04-13 23:05] LABS: Basophils % 0.6 % (0.1-2.0); Eosinophils # 0.1 K/mm3 (0.0-0.4); Eosinophils % 1.6 % (0.1-12.0); Hematocrit 47.2 % (37.0-47.0); Hemoglobin 15.3 g/dL (12.2-16.2); Lymphocytes # 1.2 K/mm3 (0.7-4.5); Lymphocytes % 15.7 % (10-50); Mean Corpuscular HGB Conc 32.4 g/dL (31.8-35.4); Mean Corpuscular Hemoglobin 31.5 pg (27.0-31.2); Mean Platelet Volume 8.5 fl (7.4-10.4); Monocytes # 0.5 K/mm3 (0.1-1.0); Monocytes % 6.2 % (1.7-9.3); Neutrophils # 5.5 K/mm3 (1.8-7.8); Neutrophils % 75.8 % (37.0-80.0); Platelet Count 325 K/mm3 (142-424); Red Blood Count 4.86 M/mm3 (4.20-5.40); Red Cell Distribution Width 12.6 % (11.5-17.5); White Blood Count 7.3 K/mm3 (4.8-10.8)
== END ==
PROVIDERS: PCP Family Medicine; Visit Provider Family Medicine
DX: U07.1 COVID-19 (principal)
CPT/HCPCS: 85025; C9803; U0003; U0005

== ENCOUNTER → 2022-06-28 15:04 | Outpatient (CLI) | payer BC, SELFPAY ==
[2022-06-28 15:53] LABS: Coronavirus 19, PCR Not Detected (NotDetected); Influenza A, PCR Not Detected (NotDetected); Influenza B, PCR Not Detected (NotDetected)
[2022-06-28 16:03] LABS: Basophils # 0.1 K/mm3 (0-0.2); Basophils % 0.8 % (0.1-2.0); Eosinophils # 0.2 K/mm3 (0.0-0.4); Eosinophils % 1.9 % (0.1-12.0); Hemoglobin 14.6 g/dL (12.2-16.2); Lymphocytes # 1.8 K/mm3 (0.7-4.5); Lymphocytes % 17.7 % (10-50); Mean Corpuscular HGB Conc 33.3 g/dL (31.8-35.4); Mean Corpuscular Hemoglobin 31.6 pg (27.0-31.2); Mean Corpuscular Volume 95.1 fl (81-99); Mean Platelet Volume 7.6 fl (7.4-10.4); Monocytes # 0.6 K/mm3 (0.1-1.0); Monocytes % 5.6 % (1.7-9.3); Neutrophils # 7.5 K/mm3 (1.8-7.8); Platelet Count 356 K/mm3 (142-424); Red Blood Count 4.62 M/mm3 (4.20-5.40); Red Cell Distribution Width 12.7 % (11.5-17.5); White Blood Count 10.2 K/mm3 (4.8-10.8)
[2022-06-28 19:45] LABS: Strep Scrn Group A (Rapid) Negative (Negative)
== END ==
PROVIDERS: PCP Family Medicine; Visit Provider Nurse Practitioner Family
DX: Z20.822 Contact with and (suspected) exposure to COVID-19 (principal)
CPT/HCPCS: 36415; 85025; 87430; C9803; U0003; U0005

== ENCOUNTER 2024-11-12 15:23 | Outpatient (CLI) | payer BC, SELFPAY ==
--- NOTE | 2024-11-12 15:28 | XR_ITS ---
FINAL REPORT CLINICAL HISTORY: IBS symptoms started on Tuesday (11/07) COMPARISON: None FINDINGS: A PA view of the chest was obtained. The cardiac and mediastinal silhouettes are within normal limits. The lungs are clear. There is no free air beneath the diaphragm. Upright and supine views of the abdomen reveal a normal bowel gas pattern. There is no evidence of small bowel obstruction. There are no pathologic calcifications. No acute osseous abnormalities identified. IMPRESSION: No acute intrathoracic or intraabdominal abnormality. Reviewed, Interpreted and Dictated by Juan Alberto Joseph MD Transcribed by Tamika Glaser Authenticated and [facility]
== END 2024-11-12 23:59 | disposition home or self-care (01) ==
LOC: RAD 15:25
PROVIDERS: PCP Nurse Practitioner Family; Visit Provider Nurse Practitioner Family
DX: K58.9 Irritable bowel syndrome, unspecified (principal)
CPT/HCPCS: 74021

== ENCOUNTER 2024-11-16 09:46 | Outpatient (CLI) | payer BC, SELFPAY ==
[2024-11-16 10:30] LABS: HCG Qualitative, Serum Negative (Negative)
[2024-11-16 11:04] LABS: Basophils % 0.6 % (0.1-2.0); Eosinophils # 0.1 K/mm3 (0.0-0.4); Eosinophils % 2.8 % (0.1-12.0); Hemoglobin 14.3 g/dL (12.2-16.2); Lymphocytes % 41.9 % (10-50); Mean Corpuscular HGB Conc 34.9 g/dL (31.8-35.4); Mean Corpuscular Hemoglobin 31.5 pg (27.0-31.2); Mean Corpuscular Volume 90.3 fl (81-99); Mean Platelet Volume 9.2 fl (7.4-10.4); Monocytes # 0.5 K/mm3 (0.1-1.0); Monocytes % 11.6 % (1.7-9.3); Neutrophils % 42.7 % (37.0-80.0); Nucleated Red Blood Cells # 0 10^3/uL; Nucleated Red Blood Cells % 0 %; Platelet Count 279 K/mm3 (142-424); Red Blood Count 4.54 M/mm3 (4.20-5.40); Red Cell Distribution Width-SD 39.1 fL; White Blood Count 4.7 K/mm3 (4.8-10.8)
[2024-11-16 11:05] LABS: Albumin Level 4.5 g/dl (3.5-5.0); Chloride 107 mmol/L (98-107); Potassium 3.8 mmoL/L (3.5-5.1); Sodium 141 mmol/L (136-145)
[2024-11-16 11:08] LABS: Alanine Aminotransferase 19 U/L (12-78); Albumin/Globulin Ratio 1.5 (1.1-1.8); Alkaline Phosphatase 46 U/L (38-126); Anion Gap 12.8 mEq/L (5-15); Aspartate Amino Transferase 27 U/L (14-36); Bilirubin,Total 0.6 mg/dl (0.2-1.3); Blood Urea Nitrogen 10 mg/dl (7-17); Calcium 9.2 mg/dl (8.4-10.2); Carbon Dioxide 25 mmol/L (22.0-30.0); Estimated Glomerular Filt Rate 98 ml/min (>60); GFR (African American) 119 ML/MIN (>60); Globulin 3.1 g/dL (1.3-3.2); Glucose 88 mg/dl (74-100); Total Protein,Serum 7.6 g/dl (6.3-8.2)
== END 2024-11-16 23:59 | disposition home or self-care (01) ==
LOC: PREOP 09:47
PROVIDERS: PCP Family Medicine; Visit Provider Obstetrics & Gynecology
DX: D68.51 Activated protein C resistance (principal); Z87.42 Personal history of other diseases of the female genital tract
CPT/HCPCS: 80053; 84703; 85025

== ENCOUNTER 2024-11-21 08:17 | Day surgery (SDC) | payer BC, SELFPAY ==
[2024-11-16 10:52] VITALS: BMI 26.6
[2024-11-21] VITALS (11 sets, daily range): BP systolic 104–135; BP diastolic 70–87; PULSE 71–100; RESP 16–18; TEMP 36.3–36.6; O2SAT 93–100
--- NOTE | 2024-11-21 09:01 | P.PNANES_ITS ---
[facility] Disclaimer: The information contained in this section may have been updated after the patient was seen, as this information can be updated by other users. 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 Have you lived/traveled outside US in past 30 days?: No Contact w/someone who lives/traveled outside US past 30 days?: No Exposure to someone with infectious disease in past 14 days?: No Do you have a fever (greater than 100.4 F or 38 C)?: No Have you tested positive for COVID-19: No Exposed to someone with COVID-19 in past 14 days?: No Do you have a sore throat?: No Do you have a cough?: No Do you have any weakness?: No Do you have any diarrhea?: No Are you experiencing any unusual bleeding?: No Do you have any muscle aches/pain?: No Do you have any abdominal pain?: No Are you experiencing loss of taste or smell?: No [facility] Anesthesia Checklist Patient Identification Patient Identification: Arm Band Structural Data Admitted From: Home Planned Operative Procedure/s: Laparoscopic Bilateral Salpingectomy Consent for Planned Operative Procedure(s) Verified: Yes Verified Documents: Surgical Consent and History and Physical NPO Status Verified Time NPO: 00:00 Additional verifications Anesthesia Reactions: No Hx Blood Transfusions: No Blood Transfusion Reaction: No Airway Assessment Mallampati Score:: Class II C-Spine Mobility Assessed: Yes TMJ Mobility Assessed: Yes Dentition: Good Dentition Anesthesia Plan Anesthesia Type: General
[2024-11-21] MEDS: LACTATED RINGERS 1000ML 1,000 ML 50 ML IV (09:31)
[2024-11-21] MEDS: ROPIVACAINE 0.5% 30ML VIAL 150 MG (10:18)
[2024-11-21] MEDS: SODIUM CHLORIDE IRRIG SOLUTION 3,000 ML 150 ML IR (10:30)
--- NOTE | 2024-11-21 11:11 | EXP.ANES.I ---
[facility] Anesthesia Record Part I Anesthesia Record I Intake, IV Amount: 950 Hydration: Adequate Estimated blood loss (mL): 10 Urine output (mL): 0 Blood Products used (#): none Blood Pressure: 125/79 SaO2: 93 Pulse Rate: 100 Airway Patency: Patent Respiratory Rate: 18 Temperature: 97.4 F Patient is:: Drowsy and Stable Stable to PACU at:: 11:00
--- NOTE | 2024-11-21 11:28 | P.OP_ITS ---
Date of procedure: 11/21/24 Pre-op Diagnosis:: 1. Desires sterilization Post-op Diagnosis:: 1. Desires sterilization Procedure performed:: Laparoscopic bilateral salpingectomy Surgeon:: Dinah James DO CHIEF CONTROLLER STATION:: Braydon Liang Anesthesia: GETGomez Estimated blood loss (mL): 10 Operative findings:: 1. Bimanual examination revealed an anteverted 6-week size uterus with smooth contour without any adnexal masses. 2. Laparoscopic exam revealed normal-appearing uterus, ovaries, fallopian tubes and liver. 3. There were adhesions noted extending from the left colon to the left pelvic sidewall they were minimal and nonobstructive. Operative note:: Thea Millard is a 28-year-old who desires permanent sterilization. Risk and benefits were reviewed at length. We discussed LARCs and she desired to proceed with a permanent procedure. The patient was taken to the operating room where general anesthesia was obtained and noted to be adequate. SCDs were placed for thromboembolism prophylaxis and found to be working. The patient was placed in the dorsal lithotomy position using yellowfin stirrups. Timeout verified the correct patient and procedure. The patient was prepped and draped in a usual sterile fashion. A catheter was used to drain her bladder. An acorn uterine manipulator was placed and my top gloves were removed. 10mL of Lidocaine with epinepherine was injected infraumbilically and a scalpel was used to make a 5 mm infraumbilical incision with the assistance from a hemostat. The skin was tented and Optiview blunt trocar was introduced into the abdomen in the usual fashion. CO2 gas was connected with an initial pressure of 6 mmHg noted. Pneumoperitoneum was created to a pressure of 15 mmHg. The laparoscopic camera was inserted and a quick survey of the abdomen revealed grossly normal anatomy. The uterus appeared to be anteverted with a normal size shape and contour. The patient was placed in Trendelenburg. 10mLs of local anesthetic was injected and a 5mm incision was then made in the right lower quadrant with careful attention to avoid the rectus muscles and vasculature and under direct laparoscopic visualization a blunt trocar was introduced into the abdominal cavity. This process was repeated on the left side with an 8mm trocar to facilitate tube removal. The fallopian tubes were identified on the cornu of the uterus and followed out to the ovaries which revealed grossly appearing anatomy. A grasper was used to elevate the left fallopian tube. The Ligasure was used to grasp the fimbriated end of the fallopian tube, ensuring complete removal of the fimbriae, it was clamped, coagulated and transected. This process was repeated serially working towards the uterus to allow complete removal of the fallopian tube. Careful attention was given to transected the Mesosalpinx proximal to the fallopian tube. The fallopian tube was removed from the abdominal cavity and passed off the operative field to be sent to pathology. Hemostasis was noted. Attention was then turned to the right fallopian tube and the process was repeated. Hemostasis was noted and the tube was removed along with the trocar and handed off the operative field to be sent to pathology. Pneumoperitoneum reduced, and all ports removed. The 3 abdominal incisions were closed with a single simple interrupted suture using 4-0 Monocryl. Dermabond was applied to each skin incision. The Natural Steps uterine manipulator was removed. All counts were correct x2, per nursing. The patient was extubated, stable, and transferred to the PACU. She will be discharged after meeting all DC criteria to include voiding, ambulating and tolerating PO independently. Condition: stable Disposition: same day Specimens:: Bilateral fallopian tubes Complications:: None
[2024-11-21] MEDS: KETOROLAC 30MG/ML VIAL 30 MG IV (11:35)
[2024-11-21] MEDS: HYDROMORPHONE 2MG/ML SYRINGE 0.5 MG IV (11:40)
[2024-11-21] MEDS: ONDANSETRON 4MG/2ML VIAL 4 MG IV (11:48)
--- NOTE | 2024-11-21 13:15 | P.PNANES_ITS ---
[facility] Anesthesia Record Part II Anesthesia Record Part II Discharge Time: 11:40 Destination: Surgical Day Care (OP Surgery) PACU nurse assessment reviewed?: Yes Patient Condition:: Good Anesthesia Complications:: None Swallowing reflex intact?: Yes Airway Patency: Patent Cyanosis?: No Blood Pressure: 129/74 SaO2: 99 Respiratory Rate: 18 Pulse Rate: 80 Temperature: 98 F Mental Status: Alert & Oriented Pain level:: 2 Nausea and/or vomitting:: None Intake, IV Amount: 0 Hydration: Adequate
== END 2024-11-21 12:20 | disposition home or self-care (01) ==
PROVIDERS: PCP Family Medicine; Visit Provider Obstetrics & Gynecology
PROC: (CPT 58661; principal; 2024-11-21 09:45)
DX: Z30.2 Encounter for sterilization (principal); Z87.42 Personal history of other diseases of the female genital tract
CPT/HCPCS: 58661; J3490; J1171; J1885; J2250; J2405; J3010; J7120

== ENCOUNTER 2024-12-05 15:43 | Outpatient (CLI) | payer BC, SELFPAY ==
--- NOTE | 2024-12-05 15:46 | XR_ITS ---
FINAL REPORT CLINICAL HISTORY: Acute abdominal pain, history of tubal 11/21/24 COMPARISON: 11/12/2024 FINDINGS: A single view of the abdomen was obtained. There is a nonobstructive bowel gas pattern. There are no abnormally dilated loops of small bowel. There are no abnormal calcifications. IMPRESSION: Nonobstructive bowel gas pattern. Reviewed, Interpreted and Dictated by Juan Alberto Joseph MD Transcribed by Graciela Schmid Authenticated and [facility]
== END 2024-12-05 23:59 | disposition home or self-care (01) ==
LOC: RAD 15:43
PROVIDERS: PCP Physician Assistant; Visit Provider Physician Assistant
DX: R10.9 Unspecified abdominal pain (principal); R14.0 Abdominal distension (gaseous)
CPT/HCPCS: 74018

== ENCOUNTER 2025-04-23 15:04 | Outpatient (CLI) | payer BC, SELFPAY ==
--- OUTSIDE RECORDS SUMMARY | 2025-01-01 09:45 | XMS_ITS ---
[facility] Address [address] [address] [place] [phone] Care Team Providers Care Door Glass Installer Name Role Phone Patricia Vides Primary Care Provider Lexy Ching Unavailable [phone] Allergies No Known Allergies Results Component Value Reference Range Notes CBC Fingerstick (in house) Reviewed date:01/02/2025 03:26:36 PM Interpretation: Performing Lab: Notes/Report: wbc 7.3 3.5 - 10 lym 30.7 15 - 50 mid 6.1 2 - 15 gran 63.2 35 - 80 rbc 4.86 3.5 - 5.5 hgb 15.2 11.5 - 16.5 hct 45.0 35 - 55 mcv 92.6 75 - 100 mch 31.2 25 - 35 mchc 33.7 31 - 38 plat 194 100 - 400 Reason For Referral Diagnosis 1 Irritable bowel synd osei with diarrhea (K58.0) [facility] Referring Provider First Name Lexy Referring Provider Last Name Humza Referring Provider Speciality Family Pra ctice Referred Provider Specialty Gastroentero logy General Notes repeated GI flares w ithin the past 3 months, Kirsten Coughlin 01/02/2025 9:49:08 AM > faxed to [facility] Gastroenterology Referral Priority Routine REASON FOR VISIT IBS flare up Medications Medication SIG (Take, Route, Frequency, Duration) Notes Start Date End Date Status Ibuprofen 800 MG 1 tablet with food o r milk as needed Orally every 8 hrs Active Metoclopramide HCl 5 MG 1 tablet before meals Orally Four times a day; Duration: 10 days 11/12/2024 Not-Tony g Hyoscyamine Sulfate 0.125 MG 1 tablet on the tongue and allow to dissolve as needed Orally every 4 hrs, prn Active Ondansetron 4 MG 1 tablet on the tong ue and allow to dissolve Orally q6h prn 11/12/2024 Active Ondansetron 4 MG 1 tablet on the tong ue and allow to dissolve Orally three times a day as needed 12/05/2024 Active Vital Signs Blood pressure systolic 120 mm Hg 01/02/20 25 Blood pressure diastolic 68 mm Hg 025 Heart Rate 90 /min 01/01/2025 Height 64.50 in 01/01/2025 Weight 163.8 lbs 01/01/2025 BMI 27.68 kg/m2 01/01/2025 Encounters Encounter Location Date Provider Diagnosis [facility] [address] [facility] [address] [place], [place] [phone] 01/01/2025 Lexy Ching Abdominal pain R10.9 ; Nausea R11.0 ; Irritable bowel syndrome with diarrhea K58.0 and BMI 27.0-27.9,adult Z68.27 Assessments Encounter Date Diagnosis (ICD Code) Assessment Notes Treatment Notes Treatment Clinical Notes Section Notes 01/01/2025 Abdominal pain (ICD-10 - R10.9) bland foods in small amounts with good fluid intake--small amounts frequently; no soda or caffeine; monitor for dehydration 01/01/2025 Nausea (ICD-10 - R11.0) 01/01/2025 Irritable bowel syndrome with diarrhea (ICD-10 - K58.0) has had repeated bowel flareups; has not seen GI in a while; will arrange FU 01/01/2025 BMI 27.0-27.9,adul t (ICD-10 - Z68.27) Plan Of Treatment Medication Medication Name Sig Start Date Stop Date Notes Hyoscyamine Sulfate 0.125 MG 1 tablet on the tongue and allow to dissolve as needed Orally every 4 hrs, prn Ondansetron 4 MG 1 tablet on the tong ue and allow to dissolve Orally q6h prn 11/12/2024 Treatment Notes Assessment Notes Abdominal pain bland foods in small amounts with good fluid intake--small amounts frequently; no soda or caffeine; monitor for dehydration Irritable bowel syndrome with diarrhea h as had repeated bowel flareups; has not seen GI in a while; will arrange FU Referrals Referral Date Details 01/02/2025 01/02/2025 Next Appt Details Follow Up: 01/04/2025, Reason : Progress Notes * Thea MILLARDOB:[birth year] (29 yo F)Acc No.[id number]:01/01/2025 Progress Notes Patient: Thea FLYNN Provider: ALICE Bernal :1995 A ge:29 Y S ex:Female Date:01/01/2025 Address:[address] [place] [address], [facility], [id number] Pcp:Patricia Vides Subjective: * Chief Complaints: * 1 . IBS flare up. * HPI: H PI: 29 year old female presents with c/o Patient is here today for?Pt is here today with c/o an IBS flare up. G astroenterology: c/o Abdominal Pain l eft lower quadrant. c/o Nausea.? c/o Vomiting. c/o Diarrhea x 3 episodes today; 7 x yesterday. c/o Belching.? c/o gas. c/o bowel problems. Denies : Heartburn. D enies : Fever. D enies : Blood in Stool. D enies : Constipation. * ROS: C ARDIOLOGY: no C hest pain. n o S hortness of breath. ? D ERMATOLOGY: no R tosha. n o H annie. U ROLOGY: no D ifficulty urinating. n o B lood in urine. * Medical History: I rritable Bowel Syndrome, Pulmonary Embolism, 11/2019. * Surgical History: c olonoscopy with Upper Endoscopy 10/27/2018. * Hospitalization/Major Diagno stic Procedure: C olitis- [facility] ER 02/15/2019, Shoulder Pain- [facility] 11/25/2019, Bilateral PE- [facility] 11/25-. * Family History: F ather: alive 60 yrs. M other: alive 64 yrs. P aternal Grand Father: alive. P aternal Grand Mother: . M aternal Grand Father: . M aternal Grand Mother: alive. 2 sister(s) . 1 son(s) . . * Social History: C URRENT TOBACCO USE S moking Status: Patient does NOT smoke. C affeine: yes, frequency:some. Home smoke detector use: yes. Past smoking status: no, Smoking status: Does not smoke. Sexually active: yes. * Medications: T aking Ibuprofen 800 MG Tablet 1 tablet with food or milk as needed Orally every 8 hrs , Taking Hyoscyamine Sulfate 0.125 MG Tablet Disintegrating 1 tablet on the tongue and allow to dissolve as needed Orally every 4 hrs, prn , Taking Ondansetron 4 MG Tablet Disintegrating 1 tablet on the tongue and allow to dissolve Orally q6h prn , Taking Ondansetron 4 MG Tablet Disintegrating 1 tablet on the tongue and allow to dissolve Orally three times a day as needed , Not-Taking Metoclopramide HCl 5 MG Tablet 1 tablet before meals Orally Four times a day , Medication List reviewed and reconciled with the patient * Allergies: N .K.D.A. Objective: * Vitals: W t: 163.8, Temp: 98.2, BP: 120/68, HR: 90, Nurse: loyd, Ht: 64.50, BMI:27.68. * Examination: G eneral Examination: General Appearance: N AD , alert , pleasant , Color good , well nourished and hydrated; appears not to feel well. H eart: R RR in 70's. L ungs:?CTAB A&P. A bdomen: b owel sounds present , soft; TTP in left mid and lower quads. Neurologic Exam: a lert and oriented. Assessment: * Assessment: 1. A bdominal pain - R10.9 (Primary) 2 . N ausea - R11.0 3 . I rritable bowel syndrome with diarrhea - K58.0 4 . B VA 27.0-27.9,adult - Z68.27 Plan: * Treatment: 2. N ausea Refill Ondansetron Tablet Disintegrating, 4 MG, 1 tablet on the tongue and allow to dissolve, Orally, q6h prn, 20. 3. I rritable bowel syndrome with diarrhea Notes: has had repeated bowel flareups; has not seen GI in a while; will arrange FU ? Referral To:Gastroenterology Reason: * Labs: * L ab: CBC Fingerstick (in house) (Collection Date & Time - 01/01/2025) Value Reference Range w bc 7.3 3.5 - 10 * l ym 30.7 15 - 50 * m id 6.1 2 - 15 * g ran 63.2 35 - 80 * r bc 4.86 3.5 - 5.5 * h gb 15.2 11.5 - 16.5 * h ct 45.0 35 - 55 * m cv 92.6 75 - 100 * m ch 31.2 25 - 35 * m chc 33.7 31 - 38 * p lat 194 100 - 400 * Maricruz Gavin 01/01/2025 02:3 6:43 PM > Provider reviewed results while patient in office.Lexy Ching 01/02/2025 03:26:31 PM > * Procedure Codes: 3 6416 CAPILLARY BLOOD DRAW, 98463 CBC WITH AUTO DIFF, G8420 BMI<30 AND >=22 CALC & DOCU, G8783 BP SCR PRFRM RCMDD DEFIND SCR INTVL, G8752 MOST RECENT SYSTOLIC BP < 140MM HG, G8754 MOST RECENT DIASTOLIC BP < 90MM HG * Follow Up: * Images: Billing Information: * Visit Code: 72971 Office Visit, Est Pt., Level 3. * Procedure Codes: 98719 CAPILLARY BLOOD DRAW. 70785 CBC WITH AUTO DIFF. G8420 BMI<30 AND >=22 CALC & DOCU. G8783 BP SCR PRFRM RCMDD DEFIND SCR INTVL. G8752 MOST RECENT SYSTOLIC BP < 140MM HG. G8754 MOST RECENT DIASTOLIC BP < 90MM HG. * Electronic signature of Yeny Ching APRN on 04/23/2025 at 03:08 PM EDT Sign off status: Pending * Provider: ALICE Bernal Date: 0 01/01/2025 Generated for Denisse eduardo/Paul/Katharine on: 0 04/23/2025 03:08 PM EDT History and Physical Notes * HPI (History of Present Illness) Category Sub-Category Detail Notes Category Not es Gastroenterology Fever Vomiting Abdominal Pain left lower quadrant Diarrhea x3 episodes today; 7 x yesterday Blood in Stool Nausea Heartburn Constipation Belching gas bowel problems HPI Patient is here today for Pt is here toda y with c/o an IBS flare up Examination Category Sub-Category Detail Notes Category Not es General Examination Heart: RRR in 70's Lungs: CTAB A&P Abdomen: bowel sounds present , soft; TTP in left mid and lower quads General Appearance: NAD , alert , pleasa nt , Color good , well nourished and hydrated; appears not to feel well Neurologic Exam: alert and oriented Consultation Request Notes Referral Date Referring Provider Referred Provider Not es 01/02/2025 Lexy Ching ,
--- OUTSIDE RECORDS SUMMARY | 2025-01-04 10:45 | XMS_ITS ---
Author Organization Nisa Address 1210 [facility] [address] [place] [id number] Care Team Providers Care Forest Engineer Name Role Phone Patricia Vides Primary Care Provider Isaias Conrad [phone] Allergies No Known Allergies REASON FOR VISIT [...] Encounter Location Date Provider Diagnosis Nisa 1210 [facility] [address] [place] [phone] 01/04/2025 Isaias Conrad Abdominal pain R10.9 ; [...] Notes * Thea MILLARDOB:[birth year] (29 yo F)Acc No.[id number]:01/04/2025 Progress Notes Patient: Thea FLYNN Provider: Jake Conrad M.D. :1995 A ge:29 Y S ex:Female Date:01/04/2025 Address:[address] [place] [address], [facility] [id number] Pcp:Patricia Vides Subjective: * Chief Complaints: * [...] * Hospitalization/Major Diagno stic Procedure: C olitis- [facility] 02/15/2019, Shoulder Pain- [facility] 11/25/2019, Bilateral PE- [facility] 11/25-. * Family History: F [...] Temp: 98.0, BP: 114/70, HR: 100, Nurse: bianca, Ht: 64.50, BMI:27.85. * Examination: G astroenterology: [...] * Images: Billing Information: * Visit Code: 43563 Office Visit, Est Pt., Level 3. * Procedure Codes: * Electronic signature of Georgiana Conrad MD on 04/23/2025 at 03:09 PM EDT Sign off status: Pending * Provider: Jake Conrad M.D. Date: 01/04/2025 Generated for Denisse eduardo/Paul/Katharine on: 0 04/23/2025 03:09 PM EDT History and Physical Notes * [...]
--- OUTSIDE RECORDS SUMMARY | 2025-03-20 06:30 | XMS_ITS ---
Author Organization [facility] Address 1210 [facility] 36 [facility] [address] [place] [phone] Care Team Providers Care Acid Correction Hand Name Role Phone Patricia Vides Primary Care Provider Alexandra Olvera Unavailable [phone] Allergies No Known Allergies Results Component Value [...] [address] [place] [phone] 03/20/2025 Alexandra Olvera Gastroenteritis K52. 9 Assessments [...] * Thea MILLARD ZEESHANANDOB:[birth year] (29 yo F)Acc No.[id number]:03/20/2025 Progress Notes Patient: Thea FLYNN Provider: KAREN Georges :1995 A ge:29 Y S ex:Female Date:03/20/2025 Address:[address] [place], [place] [phone] Pcp:Patricia Vides Subjective: * Chief Complaints: * [...] Diagno stic Procedure: C olitis- [facility] 02/15/2019, Shoulder Pain- [facility] 11/25/2019, Bilateral PE- [facility] 11/25-. * Family History: F [...] Codes: 8 5025 CBC WITH AUTO DIFF, 10038 CAPILLARY BLOOD DRAW, 1036F TOBACCO NON-USER * Follow Up: p rn * Images: Billing Information: * Visit Code: 55862 Office Visit, Est Pt., Level 3. * Procedure Codes: 32076 CBC WITH AUTO DIFF. 19371 CAPILLARY BLOOD DRAW. 1036F TOBACCO NON-USER. * Electronic signature of KAREN Roach on 04/23/2025 at 03:08 PM EDT Sign off status: Pending * Provider: KAREN Georges Date: 0 03/20/2025 Generated for Denisse eduardo/Paul/Katharine on: 0 04/23/2025 [...]
--- OUTSIDE RECORDS SUMMARY | 2025-04-16 07:30 | XMS_ITS ---
Author Organization [facility] Address 1210 [facility] [address] [place] [phone] Care Team Providers Care Corporate Aircraft Mechanic Name Role Phone Patricia Vides Primary Care Provider [phone] Lexy Ching [phone] Allergies No Known Allergies REASON FOR VISIT migraine Medications Medication SIG (Take, Route, Frequency, Duration) [...] as needed Orally every 8 hrs Active Medrol 4 MG as directed orally d aily; Duration: 6 days 04/16/2025 Active Vital Signs Blood pressure systolic 120 mm Hg 04/16/20 25 Blood pressure diastolic 72 mm Hg 025 Heart Rate 104 /min 04/16/2025 Height 64.50 in 04/16/2025 Weight 171.6 lbs 04/16/2025 BMI 29 kg/m2 04/16/2025 Encounters Encounter Location Date Provider Diagnosis Nisa 1210 [facility] [address] [place] [phone] 04/16/2025 Lexy Ching Headache, unspecifie d R51.9 Assessments Encounter Date Diagnosis (ICD Code) Assessment Notes Treatment Notes Treatment Clinical Notes Section Notes 04/16/2025 Headache, unspecified (ICD-10 - R51.9) given Nurtec 75mg and samples; some relief when in the office; improve water intake and Zofran prn; can continue with Motrin prn; ice/heat to back of neck prn Plan Of Treatment Medication Medication Name Sig Start Date Stop Date Notes Medrol 4 MG as directed orally daily; Duration: 6 days 04/2025 Treatment Notes Assessment Notes Headache, unspecified given Nurtec 75mg and samples; some relief when in the office; improve water intake and Zofran prn; can continue with Motrin prn; ice/heat to back of neck prn Next Appt Details Follow Up: prn, Reason: Progress Notes * Thea MILLARDDOROTHYOB:[birth year] (29 yo F)Acc No.[id number]:04/16/2025 Progress Notes Patient: Thea FLYNN Provider: ALICE Bernal :1995 A ge:29 Y S ex:Female Date:04/16/2025 Address:[address] [place] [id number] Pcp:Patricia Vides Subjective: * Chief Complaints: * 1 . Migraine. * HPI: N eurology: 29 year old female presents with c/o headache P t complains of migraine that started 04/15. Pt states she has tried to take Ibuprofen but has not had any relief, occipital, associated with photophobia and some nausea. * ROS: D ERMATOLOGY: no R tosha. n o H annie. G ASTROENTEROLOGY: no N ausea. n o V omiting. n o D iarrhea.? U ROLOGY: no B lood in urine. n o F requent urination. ? * Medical History: I rritable Bowel Syndrome, Pulmonary Embolism, 11/2019. * Surgical History: c olonoscopy with Upper Endoscopy 10/27/2018. * Hospitalization/Major Diagno stic Procedure: C olitis- [facility] 02/15/2019, Shoulder Pain- [facility] 11/25/2019, Bilateral PE- [facility] 11/25-. * Family History: F ather: [...] three times a day as needed , Medication List reviewed and reconciled with the patient * Allergies: N .K.D.A. Objective: * Vitals: W t: 171.6, Temp: 98.7, BP: 120/72, HR: 104, Nurse: pe, Ht: 64.50, BMI:29. * Examination: G eneral Examination: General Appearance: N AD; appears uncomfortable due to Headache. H EENT: s clera and conjunctiva clear, PERRLA, TM's normal, translucent, EOM's with normal ROM. O ral cavity: m ucosa moist and WNL, no erythema. N liza: S upple, no lymphadenopathy, no carotid bruits, FROM with some discomfort with flexion and hyperextension. H eart: R RR. L ungs: C TAB A&P. N eurologic Exam: a lert and oriented, normal cranial nerves II-XII sensory & motor WNL,. Assessment: * Assessment: 1. H eadache, unspecified - R51.9 (Primary) Plan: * Treatment: * Follow Up: p rn * Images: Billing Information: * Visit Code: 00148 Office Visit, Est Pt., Level 3. * Procedure Codes: * Electronic signature of Yeny Ching APRN on 04/23/2025 at 03:08 PM EDT Sign off status: Pending * Provider: ALICE Bernal Date: 04/16/2025 Generated for Denisse eduardo/Paul/Katharine on: 04/23/2025 03:08 PM EDT History and Physical Notes * HPI (History of Present Illness) Category Sub-Category Detail Notes Category Not es Neurology headache Pt complains of migraine that started 04/15. Pt states she has tried to take Ibuprofen but has not had any relief, occipital, associated with photophobia and some nausea Examination Category Sub-Category Detail Notes Category Not es General Examination HEENT: sclera and c onjunctiva clear, PERRLA, TM's normal, translucent, EOM's with normal ROM Heart: RRR Lungs: CTAB A&P General Appearance: NAD; appears uncomfo rtable due to Headache Neurologic Exam: alert and oriented, normal cranial nerves II-XII sensory & motor WNL, Neck: Supple, no lymphaden opathy, no carotid bruits, FROM with some discomfort with flexion and hyperextension Oral cavity: mucosa moist and WNL , no erythema
--- OUTSIDE RECORDS SUMMARY | 2025-04-22 09:15 | XMS_ITS ---
Author Organization [facility] Address [address] [place] [address] 36 [facility] [address] [place] [phone] Care Team Providers Care Customer Solutions Architect Name Role Phone Patricia Vides Primary Care Provider Lexy Ching Unavailable [phone] Allergies No Known Allergies Results Component Value Reference Range Notes CBC Fingerstick (in house) Reviewed date:04/22/2025 08:04:37 PM Interpretation: Performing Lab: Notes/Report: wbc 8.0 3.5 - 10 lym 28.1% 15 - 50 mid 6.0% 2 - 15 gran 65.9% 35 - 80 rbc 4.97 3.5 - 5.5 hgb 16.2 11.5 - 16.5 hct 46.3 35 - 55 mcv 93.1 75 - 100 mch 32.6 25 - 35 mchc 35.0 31 - 38 plat 199 100 - 400 Reason For Referral Diagnosis 1 Irritable bowel synd osei with diarrhea (K58.0) Referral Organization [facility] Referring Provider First Name Lexy Referring Provider Last Name Humza Referring Provider Speciality Family Pra ctice Referred Organization [facility] OP Referred Provider SOHAIL CRUZ Referred Address [address] [facility] [address] [place],[id number], Referred Provider Specialty Gastroentero logy General Notes Kirsten Coughlin 2024 02:55:07 PM > referral was sent in February and they could not get in touch with the patient; I spoke with the patient today and gave her the number to [facility] Gastroenterology Referral Priority Routine REASON FOR VISIT stomach issues Medications Medication SIG (Take, Route, Frequency, Duration) Notes Start Date End Date Status Hyoscyamine Sulfate 0.125 MG 1 tablet on the tongue and allow to dissolve as needed Orally every 4 hrs, prn Active metroNIDAZOLE 500 MG 1 tablet Orally Thr ee times a day; Duration: 7 days 04/22/2025 Active Ibuprofen 800 MG 1 tablet with food o r milk as needed Orally every 8 hrs Active Ondansetron 4 MG 1 tablet on the tong ue and allow to dissolve Orally three times a day as needed 12/05/2024 Active Vital Signs Blood pressure systolic 120 mm Hg 04/22/20 25 Blood pressure diastolic 70 mm Hg 025 Heart Rate 94 /min 04/22/2025 Height 64.50 in 04/22/2025 Weight 170.2 lbs 04/22/2025 BMI 28.76 kg/m2 04/22/2025 Encounters Encounter Location Date Provider Diagnosis [facility] [address] [facility] 36 [facility] [address] [place] [id number] 04/22/2025 Lexy Ching Abdominal pain R10.9 ; Diarrhea, unspecified type R19.7 and Irritable bowel syndrome with diarrhea K58.0 Assessments Encounter Date Diagnosis (ICD Code) Assessment Notes Treatment Notes Treatment Clinical Notes Section Notes 04/22/2025 Abdominal pain (ICD-10 - R10.9) 04/22/2025 Diarrhea, unspecified type (ICD-10 - R19.7) maintain hydration 04/22/2025 Irritable bowel syndrome with diarrhea (ICD-10 - K58.0) bland diet Plan Of Treatment Medication Medication Name Sig Start Date Stop Date Notes Hyoscyamine Sulfate 0.125 MG 1 tablet on the tongue and allow to dissolve as needed Orally every 4 hrs, prn metroNIDAZOLE 500 MG 1 tablet Orally Thr ee times a day; Duration: 7 days 04/22/2025 Treatment Notes Assessment Notes Diarrhea, unspecified type maintain hydr ation Irritable bowel syndrome with diarrhea b land diet Pending Test Test Name Order Date Diarrhea Panel ([facility]) 04/22/2025 Referrals Referral Date Details 04/22/2025 04/22/2025, SOHAIL VIZCARRA, [address] [facility], [place], [place], [id number], Next Appt Details Follow Up: prn, Reason: Progress Notes * Thea MILLARD:[birth year] (29 yo F)Acc No.[id number]:04/22/2025 Progress Notes Patient: Thea FLYNN Provider: ALICE Bernal :1995 A ge:29 Y S ex:Female Date:04/22/2025 Address:[address] [place] [address] [id number] Pcp:Patricia Vides Subjective: * Chief Complaints: * 1 . Stomach issues. * HPI: G astroenterology: Pt states have been off and on s jory Tuesday; drinking well and voiding QS. 29 year old female presents with c/o Abdominal Pain l eft lower quadrant. c/o Heartburn. c/o Nausea w ithout food, with food. c/o Diarrhea w atery, multiple times. Denies : Vomiting. D enies : Fever. D enies : Blood in Stool. * Medical History: I rritable Bowel Syndrome, Pulmonary Embolism, 11/2019. * Surgical History: c olonoscopy with Upper Endoscopy 10/27/2018. * Hospitalization/Major Diagno stic Procedure: C olitis- [facility] ER 02/15/2019, Shoulder Pain- [facility] ER 11/25/2019, Bilateral PE- [facility] ER 11/25-. * Family History: F ather: [...] three times a day as needed , Discontinued Medrol 4 MG Tablet Therapy Pack as directed orally daily , Medication List reviewed and reconciled with the patient * Allergies: N .K.D.A. Objective: * Vitals: W t: 170.2, Temp: 98.6, BP: 120/70, HR: 94, Nurse: zahraa, Ht: 64.50, BMI:28.76. * Examination: G eneral Examination: General Appearance: N AD, alert, pleasant;' appears not to feel well. H EENT: s clera and conjunctiva clear, PERRLA, TM's normal, translucent. O ral cavity: m ucosa moist and WNL, no erythema. N liza: s upple, no lymphadenopathy. H eart: R RR. L ungs: C TAB A&P. A bdomen: b owel sounds present, soft; LLQ tenderness. N eurologic Exam: a lert and oriented. Assessment: * Assessment: 1. A bdominal pain - R10.9 (Primary) 2 . D iarrhea, unspecified type - R19.7 3 . I rritable bowel syndrome with diarrhea - K58.0 Plan: * Treatment: 2. I rritable bowel syndrome with diarrhea Start metroNIDAZOLE Tablet, 500 MG, 1 tablet, Orally, Three times a day, 7 days, 21 Tablet. ? Notes: bland diet Referral To:SOHAIL CRUZ Gastroenterology Reason: * Labs: * L ab: CBC Fingerstick (in house) (Collection Date & Time - 04/22/2025) Value Reference Range w bc 8.0 3.5 - 10 * l ym 28.1% 15 - 50 * m id 6.0% 2 - 15 * g ran 65.9% 35 - 80 * r bc 4.97 3.5 - 5.5 * h gb 16.2 11.5 - 16.5 * h ct 46.3 35 - 55 * m cv 93.1 75 - 100 * m ch 32.6 25 - 35 * m chc 35.0 31 - 38 * p lat 199 100 - 400 * Hoa Yi 04/22/2025 0 4:55:46 PM EDT > Provider reviewed results while patient in office.Lexy Ching 04/22/2025 08:04:30 PM EDT > * Follow Up: p rn * Images: Billing Information: * Visit Code: 70352 Office Visit, Est Pt., Level 3. * Procedure Codes: * Electronic signature of Yeny Ching APRN on 04/23/2025 at 03:09 PM EDT Sign off status: Pending * Provider: ALICE Bernal Date: 0 04/22/2025 Generated for Printi ng/Faxing/eTransmitting on: 0 04/23/2025 03:09 PM EDT History and Physical Notes * HPI (History of Present Illness) Category Sub-Category Detail Notes Category Not es Gastroenterology Fever Vomiting Abdominal Pain left lower quadrant Diarrhea watery, multiple aleida es Blood in Stool Nausea without food, with f ood Heartburn Examination Category Sub-Category Detail Notes Category Not es General Examination HEENT: sclera and c onjunctiva clear, PERRLA, TM's normal, translucent Heart: RRR Lungs: CTAB A&P Abdomen: bowel sounds present , soft; LLQ tenderness General Appearance: NAD, alert, pleasant ;' appears not to feel well Neurologic Exam: alert and oriented Neck: supple, no lymphaden opathy Oral cavity: mucosa moist and WNL , no erythema Consultation Request Notes Referral Date Referring Provider Referred Provider Not es 04/22/2025 Lexy Ching EARL
--- OUTSIDE RECORDS SUMMARY | 2025-04-23 15:09 | XMS_ITS | Patient Health Record ---
Author Organization [facility] SYSTEM[facility] Address [address] [place] [id number] Care Team Providers Care Energy Operations Vice President Name Role Phone Patricia Vides Primary Care Provider [phone] Isaias Conrad Unavailable [phone] Lexy Ching Unavailable [phone] Alexandra Olevra Unavailable [phone] Allergies No Known Allergies Results Component Value [...] - 38 plat 194 100 - 400 CBC Fingerstick (in house) Reviewed date:03/22/2025 05:04:22 [...] - 38 plat 225 100 - 400 CBC Fingerstick (in house) Reviewed date:04/22/2025 08:04:37 [...] - 38 plat 199 100 - 400 CBC Fingerstick (in house) Reviewed date:04/27/2024 12:14:54 AM Interpretation: Performing Lab: Notes/Report: wbc 6.9 3.5 - 10 lym 39.2% 15 - 50 mid 6.5% 2 - 15 gran 54.3% 35 - 80 rbc 5.06 3.5 - 5.5 hgb 15.9 11.5 - 16.5 hct 47.8 35 - 55 mcv 94.3 75 - 100 mch 31.4 25 - 35 mchc 33.2 31 - 38 plat 150 100 - 400 Influenza Screen (in house) Reviewed date:07/13/2024 02:43:58 PM Interpretation:neg Performing Lab: Notes/Report: neg results neg Rapid Strep- Inhouse Reviewed date:07/13/2024 02:44:05 PM Interpretation:neg Performing Lab: Notes/Report: neg strep test neg CBC Fingerstick (in house) Reviewed date:07/13/2024 02:44:12 PM Interpretation: Performing Lab: Notes/Report: wbc 7.7 3.5 - 10 lym 24.8 15 - 50 mid 5.6 2 - 15 gran 69.6 35 - 80 rbc 4.80 3.5 - 5.5 hgb 14.8 11.5 - 16.5 hct 44.1 35 - 55 mcv 91.8 75 - 100 mch 30.9 25 - 35 mchc 33.7 31 - 38 plat 198 100 - 400 Covid test (in house) Reviewed date:07/13/2024 02:43:51 PM Interpretation:neg Performing Lab: Notes/Report: neg Result: neg Urinalysis - Inhouse Reviewed date:10/02/2024 11:42:23 AM Interpretation: Performing Lab: Notes/Report: Color/Clarity yellow/clear Leuk Neg Nitrite Neg Urobili 3.2 Protein Neg pH 6.5 Blood Trace-Intact Sp. Gr. 1.015 Ketone Neg Bili Neg Gluc Neg CBC Fingerstick (in house) Reviewed date:10/02/2024 11:45:50 AM Interpretation: Performing Lab: Notes/Report: wbc 5.0 3.5 - 10 lym 39.0 15 - 50 mid 5.7 2 - 15 gran 55.3 35 - 80 rbc 4.69 3.5 - 5.5 hgb 14.8 11.5 - 16.5 hct 43.1 35 - 55 mcv 91.9 75 - 100 mch 31.6 25 - 35 mchc 34.3 31 - 38 plat 219 100 - 400 P-Culture, Urine Reviewed date:10/04/2024 02:58:20 PM Interpretation:No growth Performing Lab: Notes/Report: Test performed by [employer] [address] [place] [address] , [address], [place] [address] Bautista Cormier MD, Temperature Logging Operator CLIA: [id number] Specimen Source Urine - Void Culture, Urine See Below Final Report : No growth P-CBC with Diff plus Absolut e Counts Reviewed date:11/13/2024 08:53:33 AM Interpretation: Performing Lab: Notes/Report: Test performed by [employer] [address] [place] [address] , [address], [place] [address] Bautista Cormier MD, Temperature Logging Operator CLIA: [id number] WBC 6.6 3.8-11.5 K/uL Red Blood Cell Count (RBC) 4.57 3.60-5.30 M/mm 3 Hemoglobin (Hgb) 14.5 11.5-15.5 gm/dL Hematocrit (HCT) 43.3 35.2-46.4 % MCV 94.7 79.0-99.0 fL MCH 31.7 26.9-35.0 pg MCHC 33.5 30.4-34.8 g/dL RDW 40.5 38.6-53.8 fL Platelet Count 280 137-397 K/cumm Neutrophils Automated 62.8 41.0-77.0 % Lymphocytes Automated 26.1 14.0-48.0 % Monocytes Automated 8.5 4.0-13.0 % Eosinophils Automated 2.0 0.0-8.0 % Basophils Automated 0.3 0.0-1.5 % Immature Granulocyte Automated 0.3 0.0-1.0 % Absolute Neutrophil Count 4.2 2.0-8.2 K/uL Absolute Lymphocyte Count 1.7 0.9-3.6 K/uL Absolute Monocyte Count 0.6 0.3-1.0 K/uL Absolute Eosinophil Count 0.1 0.0-0.6 K/uL Absolute Basophil Count 0.0 0.0-0.1 K/uL Absolute Immature Granulocyte 0.02 0.00-0.03 K /uL P-Comprehensive Metabolic [place] (CMP) Reviewed date:11/13/2024 08:54:08 AM Interpretation: Performing Lab: Notes/Report: Test performed by [facility] [address] [place] [address] , [address], [place] [address] Bautista Cormier MD, Temperature Logging Operator CLIA: [id number] Sodium 139 135-145 mmol/L Potassium 4.8 3.5-5.3 mmol/L Chloride 105 97-108 mmol/L CO2 23 22-32 mmol/L Glucose 89 65-99 mg/dL BUN 11 6-20 mg/dL Creatinine 0.78 0.50-1.00 mg/dL Calcium 9.7 8.6-10.4 mg/dL eGFR by Creatinine 104 >59 mL/min/1.73m2 Protein 7.2 6.0-8.3 g/dL Albumin 4.6 3.5-5.3 g/dL Alkaline Phosphatase 51 35-121 IU/L ALT (SGPT) 17 <5-47 IU/L AST (SGOT) 16 <5-40 IU/L Bilirubin, Total 0.6 <0.2-1.2 mg/dL A/G Ratio 1.8 1.1-2.5 X ray : Abdomen Series Reviewed date:11/29/2024 01:54:42 PM Interpretation: Performing Lab: Notes/Report: CBC Fingerstick (in house) Reviewed date:12/06/2024 08:22:52 AM Interpretation: Performing Lab: Notes/Report: wbc 8.8 3.5 - 10 lym 26.2% 15 - 50 mid 7.5% 2 - 15 gran 66.3% 35 - 80 rbc 4.74 3.5 - 5.5 hgb 14.7 11.5 - 16.5 hct 44.0 35 - 55 mcv 92.9 75 - 100 mch 31.0 25 - 35 mchc 33.4 31 - 38 plat 331 100 - 400 X ray : KUB Reviewed date:12/07/2024 12:14:21 PM Interpretation: Performing Lab: Notes/Report: Medications Medication SIG (Take, Route, Frequency, Duration) [...] times a day as needed 12/05/2024 Active Immunizations Vaccine Route Administration Date Status Comme nts COVID 19 Moderna Unknown 12/25/2020 Administered DT, 7 YEARS OR OLDER Unknown 03/03/2005 Administered Problems Problem Type SNOMED Code ICD Code Onset Dates Problem Status W/U Status Risk Notes Problem Migraine (05500591) Migraine (G43.909) Active c onfirmed Problem Irritable bowel syndrome (80622653) IBS (irritable bowel syndrome) (K58.9) Active confirmed Problem Mixed anxiety and depressive disorder (036196530) Depression with anxiety (F41.8) Active confirmed Problem Irritable bowel syndrome with diarrhea (294695880) Irritable bowel syndrome with diarrhea (K58.0) Active confirmed Problem Irritable bowel syndrome (63892414) Irritable bowel syndrome without diarrhea (K58.9) Active confirmed Problem Gastroesophageal reflux disease without esophagitis (628917052) Gastroesophageal reflux disease without esophagitis (K21.9) Active confirmed Problem Hemorrhoids without complication (45897691) Acute hemorrhoid (K64.9) Active confirmed Problem Spasm of bladder (105774484) Bladder spasms (N32.89) Active confirmed Problem Irritable bowel syndrome (70762963) Irritable bowel syndrome with both constipation and diarrhea (K58.2) Active confirmed Problem Oropharyngeal dysphagia (15375723) Oropharyngeal dysphagia (R13.12) Active confirmed Problem Allergic rhinitis (34204751) Allergic rhinitis, unspecified seasonality, unspecified trigger (J30.9) Active confirmed Problem Multiple subsegmental pulmonary emboli without acute cor pulmonale (I26.94) Active confirmed Vital Signs Heart Rate 94 /min 04/22/2025 Blood pressure diastolic 70 mm Hg 04/22/2025 Height 64.50 in 04/22/2025 Blood pressure systolic 120 mm Hg 04/22/2025 Weight 170.2 lbs 04/22/2025 BMI 28.76 kg/m2 04/22/2025 Encounters Encounter Location Date Provider Diagnosis [facility] [address] [place] [id number] 04/26/2024 Alexandra Crowron Acute diarrhea R19.7 [facility] [address] [place] [id number] 07/13/2024 Alexandra Crowdy Acute URI J06.9 and Bronchitis J40 [facility] [address] [place], [place] [phone] 10/02/2024 Lexy Ching Abdominal pain R10.9 ; Diarrhea R19.7 ; Hematuria R31.9 and IBS (irritable bowel syndrome) K58.9 [facility] [address] [place], [place] [id number] 10/24/2024 Isaias [place] Pre-op exam Z01.818 [facility] [address] [facility] [address] [place] [id number] 11/12/2024 Lexy Ching Abdominal pain R10.9 ; IBS (irritable bowel syndrome) K58.9 ; Nausea & vomiting R11.2 and BMI 27.0-27.9,adult Z68.27 [facility] [address] [place] [id number] 12/05/2024 Alexandra Crowdy Acute abdominal pain R10.9 ; Status post tubal ligation Z98.51 ; Nausea R11.0 and BMI 27.0-27.9,adult Z68.27 [facility] [address] [place], [place] [id number] 01/01/2025 Lexy Ching Abdominal pain R10.9 ; Nausea R11.0 ; Irritable bowel syndrome with diarrhea K58.0 and BMI 27.0-27.9,adult Z68.27 [facility] [address] [place], [place] [id number] 01/04/2025 Isaias [place] Abdominal pain R10.9 ; Nausea R11.0 and Irritable bowel syndrome with diarrhea K58.0 [facility] [address] [place], [place] [id number] 03/20/2025 Alexandra Clarkdy Gastroenteritis K52. 9 [facility] [address] [facility] [address] [place], [place] [id number] 04/16/2025 Lexy Chign Headache, unspecifie d R51.9 [facility] [address] [facility] [address] [place], [place] [id number] 04/22/2025 Lexy Ching Abdominal pain R10.9 ; Diarrhea, unspecified type R19.7 and Irritable bowel syndrome with diarrhea K58.0 [facility] [address] [facility] [address] [place], [place] [id number] 11/13/2024 Lexy Ching [facility] [address] [facility] [address] [place], [place] [id number] 11/15/2024 Lexy Ching [facility] [address] [facility] [address] [place], [place] [id number] 12/07/2024 Alexandra Crowdy [facility] [address] [facility] [address] [place], [place] [id number] 12/10/2024 Patricia Vides Assessments Encounter Date Diagnosis (ICD Code) Assessment Notes Treatment Notes Treatment Clinical Notes Section Notes 04/26/2024 Acute diarrhea (ICD-10 - R19.7) She needs more levsin. Rx sent. Will get a note for today and tomorrow. 07/13/2024 Bronchitis (ICD-10 - J40) Will start on an inhaler. 07/13/2024 Acute URI (ICD-10 - J06.9) 10/02/2024 Abdominal pain (ICD-10 - R10.9) 10/02/2024 Diarrhea (ICD-10 - R19.7) she will eat a bland diet and maintain hydration 10/24/2024 Pre-op exam (ICD-10 - Z01.818) Patient is of acceptable risk for proposed surgery 11/12/2024 Abdominal pain (ICD-10 - R10.9) mostly clear liquids today; abdominal series to determine if stool burden; start Reglan 12/05/2024 Acute abdominal pain (ICD-10 - R10.9) Will get x-rays to make sure she does not have a blockage or ileus 12/05/2024 Status post tubal ligation (ICD-10 - Z98.51) Has f/u with OBGYN tomorrow 01/01/2025 Abdominal pain (ICD-10 - R10.9) bland foods in small amounts with good fluid intake--small amounts frequently; no soda or caffeine; monitor for dehydration 11/12/2024 IBS (irritable bowel syndrome) (ICD-10 - K58.9) 03/20/2025 Gastroenteritis (ICD-10 - K52.9) 04/16/2025 Headache, unspecified (ICD-10 - R51.9) given Nurtec 75mg and samples; some relief when in the office; improve water intake and Zofran prn; can continue with Motrin prn; ice/heat to back of neck prn 04/22/2025 Abdominal pain (ICD-10 - R10.9) 01/01/2025 Nausea (ICD-10 - R11.0) 01/04/2025 Abdominal pain (ICD-10 - R10.9) Improved 04/22/2025 Diarrhea, unspecified type (ICD-10 - R19.7) maintain hydration 01/04/2025 Nausea (ICD-10 - R11.0) 04/22/2025 Irritable bowel syndrome with diarrhea (ICD-10 - K58.0) bland diet 12/05/2024 Nausea (ICD-10 - R11.0) 01/01/2025 Irritable bowel syndrome with diarrhea (ICD-10 - K58.0) has had repeated bowel flareups; has not seen GI in a while; will arrange FU 11/12/2024 Nausea & vomiting (ICD-10 - R11.2) 10/02/2024 Hematuria (ICD-10 - R31.9) 10/02/2024 IBS (irritable bowel syndrome) (ICD-10 - K58.9) will restart levsin 11/12/2024 BMI 27.0-27.9,adult (ICD-10 - Z68.27) 12/05/2024 BMI 27.0-27.9,adult (ICD-10 - Z68.27) 01/01/2025 BMI 27.0-27.9,adult (ICD-10 - Z68.27) 01/04/2025 Irritable bowel syndrome with diarrhea (ICD-10 - K58.0) Plan Of Treatment Pending Test Test Name Order Date Diarrhea Panel ([facility]) 04/22/2025 Insurance Providers Payer Name Payer Address Payer Phone Subscriber Number Group Number Insured Name Patient Relationship to Insured Coverage Start Date Coverage End Date [facility] [address] [place] [address] [id number] Thea Millard Self - patient is the insured Medications Administered Medication Instructions Date of Administration Dosage Notes Phenergan 12.5 mgs. IM 09/01/2018 phenergan 25 mg/ml 01/13/2019 1 mg Medical (General) History Medical History History ICD Code Irritable Bowel Syndrome Pulmonary Embolism, 11/2019 Surgical History Surgery Date(Month/Year) colonoscopy with Upper Endoscopy 019 Hospitalization History Reason Date(Month/Year) Bilateral PE- [facility] ER 11/25- Shoulder Pain- [facility] ER 11/25/2019 Colitis- [facility] ER 02/15/2019
[2025-04-23 15:14] LABS: Adenovirus F 40/41, stool Not Detected (NotDetected); Clostridium Difficile A/B, PCR Not Detected (NotDetected); Cyclospora Cayetanesis Not Detected (NotDetected); Plesimonas Shigalloides, PCR Not Detected (NotDetected); Salmonella, PCR Not Detected (NotDetected); Shiga-like toxin E coli Not Detected (NotDetected); Shigella Enterovasive E coli Not Detected (NotDetected); Vibrio, PCR Not Detected (NotDetected); Yersinia Entercolitica, PCR Not Detected (NotDetected)
== END 2025-04-23 23:59 | disposition home or self-care (01) ==
LOC: LAB.DROPOF 15:06
PROVIDERS: PCP Nurse Practitioner Family; Visit Provider Nurse Practitioner Family
DX: R19.7 Diarrhea, unspecified (principal)
CPT/HCPCS: 87507

== ENCOUNTER 2025-05-23 13:23 | Outpatient (CLI) | payer BC, SELFPAY ==
--- OUTSIDE RECORDS SUMMARY | 2025-01-04 10:45 | XMS_ITS ---
Author Organization Nisa Address 1210 [facility] [address] [place] [id number] Care Team Providers Care Chute Operator Name Role Phone Patricia Vides Primary Care Provider [phone] Isaias Conrad [phone] Allergies No Known Allergies REASON FOR VISIT Tuesday f/u Medications Medication SIG (Take, Route, Frequency, Duration) Notes Start Date End Date Status Hyoscyamine Sulfate 0.125 MG 1 tablet on the tongue and allow to dissolve as needed Orally every 4 hrs, prn Active Ondansetron 4 MG 1 tablet on the tong ue and allow to dissolve Orally three times a day as needed 12/05/2024 Active Ibuprofen 800 MG 1 tablet with food o r milk as needed Orally every 8 hrs Active Vital Signs Blood pressure systolic 114 mm Hg 01/05/20 25 Blood pressure diastolic 70 mm Hg 025 Heart Rate 100 /min 01/04/2025 Height 64.50 in 01/04/2025 Weight 164.8 lbs 01/04/2025 BMI 27.85 kg/m2 01/04/2025 Encounters Encounter Location Date Provider Diagnosis Nisa 1210 [facility] [address] [place] [id number] 01/04/2025 Isaias Conrad Abdominal pain R10.9 ; Nausea R11.0 and Irritable bowel syndrome with diarrhea K58.0 Assessments Encounter Date Diagnosis (ICD Code) Assessment Notes Treatment Notes Treatment Clinical Notes Section Notes 01/04/2025 Abdominal pain (ICD-10 - R10.9) Improved 01/04/2025 Nausea (ICD-10 - R11.0) 01/04/2025 Irritable bowel syndrome with diarrhea (ICD-10 - K58.0) Plan Of Treatment Treatment Notes Assessment Notes Abdominal pain Improved Next Appt Details Follow Up: via phone to repo rt progress, Reason: Progress Notes * Thea MILLARDOB:[birth year] (29 yo F)Acc No.[id number]:01/04/2025 Progress Notes Patient: Thea FLYNN Provider: Jake Conrad M.D. :1995 A ge:29 Y S ex:Female Date:01/04/2025 Address:[address] [place] [address], [facility] [id number] Pcp:Patricia Vides Subjective: * Chief Complaints: * 1 . Tuesday f/u. * HPI: G astroenterology: 29 year old female presents with c/o IBS P t here to f/u. Pt was seen on 01/01 for vomting and diarrhea. Pt states that sx's have improved as of today. * ROS: G ASTROENTEROLOGY: no N ausea. n o V omiting. U ROLOGY: no D ifficulty urinating. n o B lood in urine. * Medical History: I rritable Bowel Syndrome, Pulmonary Embolism, 11/2019. * Surgical History: c olonoscopy with Upper Endoscopy 10/27/2018. * Hospitalization/Major Diagno stic Procedure: C olitis- [facility] 02/15/2019, Shoulder Pain- [facility] 11/25/2019, Bilateral PE- [facility] 11/25-. * Family History: F ather: [...] needed Orally every 8 hrs , Taking Ondansetron 4 MG Tablet Disintegrating 1 tablet on the tongue and allow to dissolve Orally three times a day as needed , Taking Hyoscyamine Sulfate 0.125 MG Tablet Disintegrating 1 tablet on the tongue and allow to dissolve as needed Orally every 4 hrs, prn , Discontinued Ondansetron 4 MG Tablet Disintegrating 1 tablet on the tongue and allow to dissolve Orally q6h prn , Discontinued Metoclopramide HCl 5 MG Tablet 1 tablet before meals Orally Four times a day , Medication List reviewed and reconciled with the patient * Allergies: N .K.D.A. Objective: * Vitals: W t: 164.8, Temp: 98.0, BP: 114/70, HR: 100, Nurse: bianac, Ht: 64.50, BMI:27.85. * Examination: G astroenterology: General Appearance: p leasant, NAD. O ral cavity: n ormal. S clera: a nicteric. H eart sounds: r egular, normal S1 S2, no murmurs. L ungs: c lear, no rales or wheezes. A bdomen: B S present, soft, minimal periumbilical tenderness to palpation, no guarding or rigidity, no masses felt. Assessment: * Assessment: 1. A bdominal pain - R10.9 (Primary) 2 . N ausea - R11.0 3 . I rritable bowel syndrome with diarrhea - K58.0 Plan: * Treatment: * Follow Up: v ia phone to report progress * Images: Billing Information: * Visit Code: 39656 Office Visit, Est Pt., Level 3. * Procedure Codes: * Electronic signature of Georgiana Conrad MD on 05/23/2025 at 01:27 PM EDT Sign off status: Pending * Provider: Jake Conrad M.D. Date: 0 01/04/2025 Generated for Denisse eduardo/Paul/Katharine on: 01:27 PM EDT History and Physical Notes * HPI (History of Present Illness) Category Sub-Category Detail Notes Category Not es Gastroenterology IBS Pt here to f/u. Pt was seen on 01/01 for vomting and diarrhea. Pt states that sx's have improved as of today Examination Category Sub-Category Detail Notes Category Not es Gastroenterology Oral cavity: normal Sclera: anicteric Heart sounds: regular, normal S1 S 2, no murmurs Lungs: clear, no rales or w heezes Abdomen: BS present, soft, mi nimal periumbilical tenderness to palpation, no guarding or rigidity, no masses felt General Appearance: pleasant, NAD
--- OUTSIDE RECORDS SUMMARY | 2025-03-20 06:30 | XMS_ITS ---
Author Organization [facility] 1210 [facility] 36 [facility] [address] [place] [phone] Care Team Providers Care Flying Ii Instructor Name Role Phone Patricia Vides Primary Care Provider [phone] Alexandra Olvera Unavailable [phone] Allergies No Known Allergies Results Component Value Reference Range Notes CBC Fingerstick (in house) Reviewed date:03/22/2025 05:04:22 PM Interpretation: Performing Lab: Notes/Report: wbc 7.7 3.5 - 10 lym 25.9 15 - 50 mid 7.1 2 - 15 gran 67.0 35 - 80 rbc 4.74 3.5 - 5.5 hgb 15.2 11.5 - 16.5 hct 43.9 35 - 55 mcv 92.8 75 - 100 mch 32.1 25 - 35 mchc 34.6 31 - 38 plat 225 100 - 400 REASON FOR VISIT vomiting, low fever, chills Medications Medication SIG (Take, Route, Frequency, Duration) Notes Start Date End Date Status Ibuprofen 800 MG 1 tablet with food o r milk as needed Orally every 8 hrs Active Ondansetron 4 MG 1 tablet on the tong ue and allow to dissolve Orally three times a day as needed 12/05/2024 Active Hyoscyamine Sulfate 0.125 MG 1 tablet on the tongue and allow to dissolve as needed Orally every 4 hrs, prn Active Vital Signs Blood pressure systolic 118 mm Hg 03/20/20 25 Blood pressure diastolic 72 mm Hg 025 Heart Rate 99 /min 03/20/2025 Height 64.50 in 03/20/2025 Weight 173 lbs 03/20/2025 BMI 29.23 kg/m2 03/20/2025 Encounters Encounter Location Date Provider Diagnosis [facility] [address] [place] [phone] 03/20/2025 Alexandra Olvera Gastroenteritis K52. 9 Assessments Encounter Date Diagnosis (ICD Code) Assessment Notes Treatment Notes Treatment Clinical Notes Section Notes 03/20/2025 Gastroenteritis (ICD-10 - K52.9) Plan Of Treatment Medication Medication Name Sig Start Date Stop Date Notes Ondansetron 4 MG 1 tablet on the tong ue and allow to dissolve Orally three times a day as needed 12/05/2024 Next Appt Details Follow Up: prn, Reason: Progress Notes * Thea MILLARD ZEESHANANDOB:[birth year] (29 yo F)Acc No.[id number]:03/20/2025 Progress Notes Patient: Thea FLYNN Provider: KAREN Georges :1995 A ge:29 Y S ex:Female Date:03/20/2025 Address:[address] [place], [place] [id number] Pcp:Patricia Vides Subjective: * Chief Complaints: * 1 . Vomiting, low fever, chills. * HPI: G astroenterology: Pt states these symptoms started Tuesday. Pt states she is a little better this am and it has been a few hours since she has vomited. 29 year old female presents with c/o Nausea. c/o Vomiting?after meals. c/o Fever l ow grade, with chills. * ROS: C ARDIOLOGY: no D izziness. n o C hest pain. D ERMATOLOGY: no R tosha. n o H annie. U ROLOGY: no D ifficulty urinating. n o B lood in urine. * Medical History: I rritable Bowel Syndrome, Pulmonary Embolism, 11/2019. * Surgical History: c olonoscopy with Upper Endoscopy 10/27/2018. * Hospitalization/Major Diagno stic Procedure: C olitis- [facility] 02/15/2019, Shoulder Pain- [facility] 11/25/2019, Bilateral PE- [facility] 11/25-. * Family History: F ather: [...] needed Orally every 4 hrs, prn , Medication List reviewed and reconciled with the patient * Allergies: N .K.D.A. Objective: * Vitals: W t: 173, Temp: 98.5, BP: 118/72, HR: 99, Nurse: pe, Ht: 64.50, BMI:29.23. * Examination: G eneral Examination: General Appearance: N AD. H EENT: u nremarkable.?Oral cavity: n o lesions, mucosa moist and WNL, no erythema. N liza: s upple, no lymphadenopathy. C hest: n ormal shape and expansion. H eart: R SR. L ungs: c lear to auscultation. A bdomen: b owel sounds present, soft and nontender. ? Assessment: * Assessment: 1. G astroenteritis - K52.9 (Primary) Plan: * Treatment: Value Reference Range w bc 7.7 3.5 - 10 * l ym 25.9 15 - 50 * m id 7.1 2 - 15 * g ran 67.0 35 - 80 * r bc 4.74 3.5 - 5.5 * h gb 15.2 11.5 - 16.5 * h ct 43.9 35 - 55 * m cv 92.8 75 - 100 * m ch 32.1 25 - 35 * m chc 34.6 31 - 38 * p lat 225 100 - 400 * [place], Hoa 03/20/2025 1 1:10:49 AM EDT > Provider reviewed results while patient in office. * Procedure Codes: 8 5025 CBC WITH AUTO DIFF, 28625 CAPILLARY BLOOD DRAW, 1036F TOBACCO NON-USER * Follow Up: p rn * Images: Billing Information: * Visit Code: 33174 Office Visit, Est Pt., Level 3. * Procedure Codes: 67373 CBC WITH AUTO DIFF. 59352 CAPILLARY BLOOD DRAW. 1036F TOBACCO NON-USER. * Electronic signature of KAREN Roach on 05/23/2025 at 01:26 PM EDT Sign off status: Pending * Provider: KAREN Georges Date: 0 03/20/2025 Generated for Denisse eduardo/Paul/Katharine on: 1 01:26 PM EDT History and Physical Notes * HPI (History of Present Illness) Category Sub-Category Detail Notes Category Not es Gastroenterology Fever low grade, with chills Vomiting after meals Nausea Examination Category Sub-Category Detail Notes Category Not es General Examination HEENT: unremarkable Heart: RSR Lungs: clear to auscultatio n Abdomen: bowel sounds present , soft and nontender General Appearance: NAD Neck: supple, no lymphaden opathy Oral cavity: no lesions, mucosa m oist and WNL, no erythema Chest: normal shape and exp ansion
--- OUTSIDE RECORDS SUMMARY | 2025-04-16 07:30 | XMS_ITS ---
Author Organization [facility] Address 1210 [facility] [address] [place] [phone] Care Team Providers Care Soa Engineer Name Role Phone Patricia Vides Primary Care Provider Lexy Ching [phone] Allergies No Known Allergies REASON FOR VISIT [...] Encounter Location Date Provider Diagnosis Nisa 1210 [facility] [address] [place] [phone] 04/16/2025 Lexy Ching Headache, unspecifie d R51.9 and BMI 29.0-29.9,adult Z68.29 Assessments Encounter Date Diagnosis (ICD Code) Assessment Notes Treatment Notes Treatment Clinical Notes Section Notes 04/16/2025 Headache, unspecified (ICD-10 - R51.9) given Nurtec 75mg and samples; some relief when in the office; improve water intake and Zofran prn; can continue with Motrin prn; ice/heat to back of neck prn 04/16/2025 BMI 29.0-29.9,adult (ICD-10 - Z68.29) Plan Of Treatment Medication Medication Name Sig [...] prn, Reason: Progress Notes * Thea MILLARD CANDYOB:[birth year] (29 yo F)Acc No.[id number]:04/16/2025 Progress Notes Patient: Thea FLYNNAN Provider: ALICE Bernal :1995 A ge:29 Y S ex:Female Date:04/16/2025 Address:[address] [place] [address] [id number] Pcp:Patricia Vides Subjective: * Chief Complaints: * [...] * Hospitalization/Major Diagno stic Procedure: C olitis- [facility] 02/15/2019, Shoulder Pain- [facility] 11/25/2019, Bilateral PE- [facility] 11/25-. * Family History: F [...] 1. H eadache, unspecified - R51.9 (Primary) 2 . B PA 29.0-29.9,adult - Z68.29 Plan: * Treatment: * Procedure Codes: 1 036F TOBACCO NON-USER, 3074F SYST BP LT 130 MM HG, 3078F DIAST BP < 80 MM HG * Follow Up: p rn * Images: Billing Information: * Visit Code: 91522 Office Visit, Est Pt., Level 3. * Procedure Codes: 1036F TOBACCO NON-USER. 3074F SYST BP LT 130 MM HG. 3078F DIAST BP < 80 MM HG. * Electronic signature of Yeny Ching APRN on 05/23/2025 at 01:26 PM EDT Sign off status: Pending * Provider: ALICE Bernal Date: 0 04/16/2025 Generated for Denisse eduardo/Paul/Katharine on: 1 01:26 [...]
--- OUTSIDE RECORDS SUMMARY | 2025-04-22 09:15 | XMS_ITS ---
Author Organization [facility]id[facility] Address [address] [place] [address] [address] [place] [phone] Care Team Providers Care Skidway Worker Name Role Phone Patricia Vides Primary Care Provider [phone] Lexy Ching Unavailable [phone] Allergies No Known Allergies Results Component Value [...] - 38 plat 199 100 - 400 Diarrhea Panel ([facility]) Reviewed date:04/25/2025 08:07:11 AM Interpretation:DUPLICATE ORDER Performing Lab: Notes/Report: DUPLICATE ORDER Reason For Referral Diagnosis 1 Irritable bowel synd osei with diarrhea (K58.0) Referral Organization [facility] Referring Provider First Name Lexy Referring Provider Last Name Humza Referring Provider Speciality Family Pra ctice Referred Organization [facility] OP Referred Provider SOHAIL CRUZ Referred Address [address] [place], [place] [address]way [address] [place],[id number], Referred Provider Specialty Gastroentero logy General Notes Kirsten Coughlin 2024 02:55:07 PM > referral was sent in February and they could not get in touch with the patient; I spoke with the patient today and gave her the number to [facility] Gastroenterology Referral Priority Routine REASON FOR VISIT [...] 04/22/2025 Encounters Encounter Location Date Provider Diagnosis [facility] [place] [id number] 04/22/2025 Lexy Ching Abdominal pain R10.9 ; Diarrhea, unspecified type R19.7 ; Irritable bowel syndrome with diarrhea K58.0 and BMI 28.0-28.9,adult Z68.28 Assessments Encounter Date Diagnosis (ICD Code) Assessment Notes Treatment Notes Treatment Clinical Notes Section Notes 04/22/2025 Abdominal pain (ICD-10 - R10.9) 04/22/2025 Diarrhea, unspecified type (ICD-10 - R19.7) maintain hydration 04/22/2025 Irritable bowel syndrome with diarrhea (ICD-10 - K58.0) bland diet 04/22/2025 BMI 28.0-28.9,adult (ICD-10 - Z68.28) Plan Of Treatment Medication Medication Name Sig [...] bowel syndrome with diarrhea b land diet Referrals Referral Date Details 04/22/2025 04/22/2025, SOHAIL VIZCARRA, [address], [place], [place], [phone], Next Appt Details Follow Up: prn, Reason: Progress Notes * Thea MILLARDOB:[birth year] (29 yo F)Acc No.[id number]:04/22/2025 Progress Notes Patient: Thea FLYNN Provider: ALICE Bernal :1995 A ge:29 Y S ex:Female Date:04/22/2025 Address:[address] [place] [address], [id number] Pcp:Patricia Vides Subjective: * Chief Complaints: * [...] * Hospitalization/Major Diagno stic Procedure: C olitis- [facility] ER 02/15/2019, Shoulder Pain- [facility] ER 11/25/2019, Bilateral PE- [facility] ER 11/25-. * Family History: F ather: [...] Temp: 98.6, BP: 120/70, HR: 94, Nurse: pe, Ht: 64.50, BMI:28.76. * Examination: G eneral [...] with diarrhea - K58.0 4 . B CO 28.0-28.9,adult - Z68.28 Plan: * Treatment: 2. I rritable bowel [...] Ching 04/22/2025 08:04:30 PM EDT > * Procedure Codes: 8 5025 CBC WITH AUTO DIFF, 83290 CAPILLARY BLOOD DRAW, 1036F TOBACCO NON-USER, 3074F SYST BP LT 130 MM HG, 3078F DIAST BP < 80 MM HG * Follow Up: p rn * Images: Billing Information: * Visit Code: 92012 Office Visit, Est Pt., Level 3. * Procedure Codes: 42616 CBC WITH AUTO DIFF. 63521 CAPILLARY BLOOD DRAW. 1036F TOBACCO NON-USER. 3074F SYST BP LT 130 MM HG. 3078F DIAST BP < 80 MM HG. * Electronic signature of Yeny rigoberto Ching APRN on 05/23/2025 at 01:26 PM EDT Sign off status: Pending * Provider: ALICE Bernal Date: 0 04/22/2025 Generated for Denisse eduardo/Paul/Premasmitting on: 1 01:26 PM EDT History and [...]
--- OUTSIDE RECORDS SUMMARY | 2025-05-23 13:27 | XMS_ITS | Patient Health Record ---
Author Organization [facility] Address [address] [place] [id number] Care Team Providers Care Web Press Operator Name Role Phone Patricia Vides Primary Care Provider Isaias Conrad Unavailable [phone] Lexy Ching Unavailable [phone] Alexandra Olvera Unavailable [phone] Allergies No Known Allergies Results Component Value [...] plat 199 100 - 400 Diarrhea Panel ([facility]) Reviewed date:04/25/2025 08:07:11 AM Interpretation:DUPLICATE ORDER Performing Lab: Notes/Report: DUPLICATE ORDER CBC Fingerstick (in house) ( Not yet reviewed by provider) Interpretation: Performing Lab: Notes/Report: wbc 9.6 3.5 - 10 lym 32.3 15 - 50 mid 7.1 2 - 15 gran 60.6 35 - 80 rbc 5.06 3.5 - 5.5 hgb 16.2 11.5 - 16.5 hct 47.5 35 - 55 mcv 93.8 75 - 100 mch 32.1 25 - 35 mchc 34.1 31 - 38 plat 159 100 - 400 X ray : KUB Reviewed date:12/07/2024 12:14:21 PM Interpretation: Performing Lab: Notes/Report: CBC Fingerstick [...] - 38 plat 331 100 - 400 P-Culture, Urine Reviewed date:10/04/2024 02:58:20 PM Interpretation:No growth Performing Lab: Notes/Report: Test performed by [employer], [employer] [address] [place] [address] , [address], [place] [address] Bautista Cormier MD, [employer] CLIA: [id number] Specimen Source Urine - Void Culture, Urine See Below Final Report : No growth CBC Fingerstick (in house) Reviewed date:10/02/2024 11:45:50 [...] - 38 plat 219 100 - 400 Urinalysis - Inhouse Reviewed date:10/02/2024 11:42:23 AM Interpretation: Performing Lab: Notes/Report: Color/Clarity yellow/clear Leuk Neg Nitrite Neg Urobili 3.2 Protein Neg pH 6.5 Blood Trace-Intact Sp. Gr. 1.015 Ketone Neg Bili Neg Gluc Neg CBC Fingerstick (in house) Reviewed date:01/02/2025 03:26:36 [...] - 38 plat 194 100 - 400 P-CBC with Diff plus Absolut e Counts Reviewed date:11/13/2024 08:53:33 AM Interpretation: Performing Lab: Notes/Report: Test performed by [employer], [employer] [address] [place] [address] , [address], [place] [address] Bautista Cormier MD, [employer] CLIA: [id number] WBC 6.6 3.8-11.5 K/uL Red Blood Cell [...] 0.0-0.1 K/uL Absolute Immature Granulocyte 0.02 0.00-0.03 K/uL P-Comprehensive Metabolic [place] (CMP) Reviewed date:11/13/2024 08:54:08 AM Interpretation: Performing Lab: Notes/Report: Test performed by [employer], [employer] [address] [place] [address] , [address], [place] [address] Bautista Cormier MD, [employer] CLIA: [id number] Sodium 139 135-145 mmol/L Potassium 4.8 3.5-5.3 [...] date:11/29/2024 01:54:42 PM Interpretation: Performing Lab: Notes/Report: H-DIARRHEA PANEL Reviewed date:04/24/2025 03:11:27 PM Interpretation: Performing Lab: Notes/Report: CAMPYLOBACTER Not Detected NotDetected CLOSTR DIFFICIL Not Detected NotDetected PLESIOMONAS Not Detected NotDetected SALMONELLA, PCR Not Detected NotDetected YERSINIA Not Detected NotDetected VIBRIO, PCR Not Detected NotDetected VIBRIO CHOLERAE Not Detected NotDetected ECOLI (EAEC) Not Detected NotDetected ECOLI (EPEC) Not Detected NotDetected ECOLI (ETEC) Not Detected NotDetected SHIGATOXIN Not Detected NotDetected ECOLI O157 Not Detected NotDetected SHIG-INVAS ECOL Not Detected NotDetected CRYPTO Not Detected NotDetected CYCLOSPORA Not Detected NotDetected EHISTOLYTICA Not Detected NotDetected GIARDIA Not Detected NotDetected ADENO STOOL Not Detected NotDetected ASTROVIRUS Not Detected NotDetected NOROVIRUS Detected NotDetected NOTIFICATION RESULT Results called to: Sil Loving RN on 04/24/25 at 1418 By Virginia Toribio ROTOVIRUS A Not Detected NotDetected SAPOVIRUS Not Detected NotDetected Influenza Screen (in house) Reviewed date:07/13/2024 02:43:58 [...] Interpretation:neg Performing Lab: Notes/Report: neg Result: neg Medications Medication SIG (Take, Route, Frequency, Duration) [...] Status W/U Status Risk Notes Problem Migraine (72843541) Migraine (G43.909) Active c onfirmed Problem Irritable bowel syndrome (04809208) IBS (irritable bowel syndrome) (K58.9) Active confirmed Problem Mixed anxiety and depressive disorder (584790250) Depression with anxiety (F41.8) Active confirmed Problem Irritable bowel syndrome with diarrhea (423024824) Irritable bowel syndrome with diarrhea (K58.0) Active confirmed Problem Irritable bowel syndrome (96789863) Irritable bowel syndrome without diarrhea (K58.9) Active confirmed Problem Gastroesophageal reflux disease without esophagitis (510541712) Gastroesophageal reflux disease without esophagitis (K21.9) Active confirmed Problem Hemorrhoids without complication (00323158) Acute hemorrhoid (K64.9) Active confirmed Problem Spasm of bladder (432900802) Bladder spasms (N32.89) Active confirmed Problem Irritable bowel syndrome (47331173) Irritable bowel syndrome with both constipation and diarrhea (K58.2) Active confirmed Problem Oropharyngeal dysphagia (13657526) Oropharyngeal dysphagia (R13.12) Active confirmed Problem Allergic rhinitis (96585109) Allergic rhinitis, unspecified seasonality, unspecified trigger (J30.9) Active confirmed Problem Multiple subsegmental pulmonary emboli without acute cor pulmonale (I26.94) Active confirmed Vital Signs Heart Rate 105 /min 05/23/2025 Blood pressure diastolic 78 mm Hg 05/23/2025 Height 64.50 in 05/23/2025 Blood pressure systolic 130 mm Hg 05/23/2025 Weight 177.8 lbs 05/23/2025 BMI 30.04 kg/m2 05/23/2025 Encounters Encounter Location Date Provider Diagnosis [facility] [address] [facility] [address] [place], [place] [id number] 07/13/2024 Alexandra Crowdy Acute URI J06.9 and Bronchitis J40 [facility] [address] [facility] [address] [place], [place] [id number] 10/02/2024 Lexy Ching Abdominal pain R10.9 ; Diarrhea R19.7 ; Hematuria R31.9 and IBS (irritable bowel syndrome) K58.9 [facility] [facility] [facility] [address] [place], [place] [id number] 10/24/2024 Isaias Heber Pre-op exam Z01.818 [facility] [address] [facility] [address] [place], [place] [id number] 11/12/2024 Lexy Ching Abdominal pain R10.9 ; IBS (irritable bowel syndrome) K58.9 ; Nausea & vomiting R11.2 and BMI 27.0-27.9,adult Z68.27 [facility] [address] [place], [place] [id number] 12/05/2024 Alexandra Crowdy Acute abdominal pain R10.9 ; Status post tubal ligation Z98.51 ; Nausea R11.0 and BMI 27.0-27.9,adult Z68.27 [facility] [address] [facility] [address] [place], [place] [id number] 01/01/2025 Lexy Ching Abdominal pain R10.9 ; Nausea R11.0 ; Irritable bowel syndrome with diarrhea K58.0 and BMI 27.0-27.9,adult Z68.27 [facility] [address] [facility] [address] [place], [place] [id number] 01/04/2025 Isaias Heber Abdominal pain R10.9 ; Nausea R11.0 and Irritable bowel syndrome with diarrhea K58.0 [facility] [address] [facility] [address] [place], [place] [id number] 03/20/2025 Alexandra Crowdy Gastroenteritis K52. 9 [facility] [address] [facility] [address] [place], [place] [id number] 04/16/2025 Lexy Ching Headache, unspecifie d R51.9 and BMI 29.0-29.9,adult Z68.29 [facility] [address] [facility] [address] [place], [place] [id number] 04/22/2025 Lexy Ching Abdominal pain R10.9 ; Diarrhea, unspecified type R19.7 ; Irritable bowel syndrome with diarrhea K58.0 and BMI 28.0-28.9,adult Z68.28 [facility] [address] [facility] [address] [place], [place] [id number] 05/23/2025 Alexandra Crowdy Gastroenteritis K52. 9 [facility] [address] [facility] [address] [place], [place] [id number] 11/13/2024 Lexy Ching [facility] [address] [place], [place] [id number] 11/15/2024 Lexy Ching [facility] [address] [place], [place] [id number] 12/07/2024 Alexandra Olvera [facility] [address] [place], [place] [id number] 12/10/2024 Patricia Vides [facility] [address] [place], [place] [id number] 04/24/2025 Lexy Ching Assessments Encounter Date Diagnosis (ICD Code) Assessment Notes Treatment Notes Treatment Clinical Notes Section Notes 07/13/2024 Acute URI (ICD-10 - J06.9) 07/13/2024 Bronchitis (ICD-10 - J40) Will start on an inhaler. 10/02/2024 Abdominal pain (ICD-10 - R10.9) 10/02/2024 Diarrhea (ICD-10 - R19.7) she will eat a bland diet and maintain hydration 10/24/2024 Pre-op exam (ICD-10 - Z01.818) Patient is of acceptable risk for proposed surgery 11/12/2024 Abdominal pain (ICD-10 - R10.9) mostly clear liquids today; abdominal series to determine if stool burden; start Reglan 11/12/2024 IBS (irritable bowel syndrome) (ICD-10 - K58.9) 12/05/2024 Acute abdominal pain (ICD-10 - R10.9) Will get x-rays to make sure she does not have a blockage or ileus 12/05/2024 Status post tubal ligation (ICD-10 - Z98.51) Has f/u with OBGYN tomorrow 01/04/2025 Abdominal pain (ICD-10 - R10.9) Improved 03/20/2025 Gastroenteritis (ICD-10 - K52.9) 04/16/2025 Headache, unspecified (ICD-10 - R51.9) given Nurtec 75mg and samples; some relief when in the office; improve water intake and Zofran prn; can continue with Motrin prn; ice/heat to back of neck prn 04/22/2025 Abdominal pain (ICD-10 - R10.9) 04/22/2025 Diarrhea, unspecified type (ICD-10 - R19.7) maintain hydration 01/01/2025 Abdominal pain (ICD-10 - R10.9) bland foods in small amounts with good fluid intake--small amounts frequently; no soda or caffeine; monitor for dehydration 01/01/2025 Nausea (ICD-10 - R11.0) 04/16/2025 BMI 29.0-29.9,adult (ICD-10 - Z68.29) 05/23/2025 Gastroenteritis (ICD-10 - K52.9) 01/01/2025 Irritable bowel syndrome with diarrhea (ICD-10 - K58.0) has had repeated bowel flareups; has not seen GI in a while; will arrange FU 04/22/2025 Irritable bowel syndrome with diarrhea (ICD-10 - K58.0) bland diet 01/04/2025 Nausea (ICD-10 - R11.0) 12/05/2024 Nausea (ICD-10 - R11.0) 11/12/2024 Nausea & vomiting (ICD-10 - R11.2) 10/02/2024 Hematuria (ICD-10 - R31.9) 10/02/2024 IBS (irritable bowel syndrome) (ICD-10 - K58.9) will restart levsin 11/12/2024 BMI 27.0-27.9,adult (ICD-10 - Z68.27) 12/05/2024 BMI 27.0-27.9,adult (ICD-10 - Z68.27) 01/04/2025 Irritable bowel syndrome with diarrhea (ICD-10 - K58.0) 01/01/2025 BMI 27.0-27.9,adult (ICD-10 - Z68.27) 04/22/2025 BMI 28.0-28.9,adult (ICD-10 - Z68.28) Plan Of Treatment Pending Test Test Name Order Date CBC Fingerstick (in house) 05/23/2025 Insurance Providers Payer Name Payer Address Payer Phone Subscriber Number Group Number Insured Name Patient Relationship to Insured Coverage Start Date Coverage End Date [facility] [address] [place] [address] [id number] Thea Millard Self - patient is the insured Medications Administered Medication Instructions Date of Administration Dosage Notes Phenergan 12.5 mgs. IM 09/01/2018 phenergan 25 mg/ml 01/13/2019 1 mg Medical (General) History Medical History History ICD Code Irritable Bowel Syndrome Pulmonary Embolism, 11/2019 Surgical History Surgery Date(Month/Year) colonoscopy with Upper Endoscopy 019 Hospitalization History Reason Date(Month/Year) Shoulder Pain- [facility] 11/25/2019 Colitis- [facility] 02/15/2019 Bilateral PE- [facility]
== END 2025-05-23 23:59 | disposition home or self-care (01) ==
LOC: LAB 13:24
PROVIDERS: PCP Physician Assistant; Visit Provider Nurse Practitioner Family
DX: R19.7 Diarrhea, unspecified (principal)
CPT/HCPCS: 82653; 83993